=== PATIENT | female | born 1980 | race Caucasian/White ===

== ENCOUNTER → 2017-10-20 09:53 | Outpatient (CLI) | payer OTHER, SELFPAY ==
--- NOTE | 2017-10-20 10:01 | US_ITS ---
US transvaginal COMPARISON: Transvaginal ultrasound pelvis 08/16/2010 HISTORY: Dysfunctional uterine bleeding, some difficulty voiding TECHNIQUE: Transvaginal ultrasound FINDINGS: The previous study described a retroverted uterus. On the current study the technologist commented on the fact that the uterus flipped during the exam from retroverted to anteverted. There is a tiny nabothian cyst noted. There is a scar noted. The endometrial echo is somewhat thickened and mildly echogenic. There is a subtle area of decreased echogenicity within the endometrium measuring 1.5 cm which could represent an endometrial polyp. Both ovaries are normal in size both showing small follicular cysts. There is no cul-de-sac fluid. IMPRESSION: Somewhat thickened endometrium with curious slightly hypoechoic area within the endometrium at the uterine fundus suggesting possibility of endometrial polyp.
== END ==
PROVIDERS: Family Provider Family Medicine; PCP Family Medicine; Visit Provider Obstetrics & Gynecology
DX: N93.8 Other specified abnormal uterine and vaginal bleeding (principal)
CPT/HCPCS: 76830

== ENCOUNTER → 2017-12-01 14:31 | Outpatient (CLI) | payer OTHER, SELFPAY ==
[2017-12-01 14:33] LABS: Microscopic, Urine URINE MICROSCOPIC (MICROSCOPIC)
[2017-12-01 14:46] LABS: Appearance,Urine CLEAR (Clear); Bilirubin,Urine Negative (Negative); Blood, Urine Negative (Negative); Color,Urine YELLOW (Yellow); Glucose,Urine (UA) Negative (Negative); Ketones,Urine Negative (Negative); Leukocyte Esterase,Urine Negative (Negative); Nitrate,Urine Negative (Negative); PH,Urine 5.5 (5.0-8.5); Protein,Urine Negative (Negative); Specific Gravity, Urine 1.025 (1.005-1.030); Urobilinogen,Urine 0.2 EU/dl (0.2)
[2017-12-01 14:50] LABS: Urine Pregnancy, HCG Qual. Negative (Negative)
[2017-12-01 14:55] LABS: Bacteria,Urine Trace /lpf
[2017-12-01 15:05] LABS: Basophils % 0.5 % (0.1-2.0); Eosinophils # 0.1 K/mm3 (0.0-0.4); Hematocrit 42.9 % (37.0-47.0); Lymphocytes % 35.5 K/mm3 (10-50); Mean Corpuscular HGB Conc 30.4 g/dL (31.8-35.4); Mean Corpuscular Hemoglobin 30.4 pg (27.0-31.2); Mean Platelet Volume 7.6 fl (7.4-10.4); Monocytes # 0.6 K/mm3 (0.1-1.0); Monocytes % 7.1 % (1.7-9.3); Neutrophils # 4.8 K/mm3 (1.8-7.8); Platelet Count 274 K/mm3 (142-424); Red Blood Count 4.29 M/mm3 (4.20-5.40); Red Cell Distribution Width 12.8 % (11.5-17.5); White Blood Count 8.5 K/mm3 (4.8-10.8)
[2017-12-01 15:22] LABS: Alanine Aminotransferase 21 U/L (12-78); Albumin Level 3.6 gm/dL (3.4-5.0); Albumin/Globulin Ratio 1.3 (1.1-1.8); Alkaline Phosphatase 75 U/L (46-116); Anion Gap 12.9 mEq/L (5-15); Aspartate Amino Transferase 12 U/L (15-37); Bilirubin,Total 0.5 mg/dL (0.2-1.0); Blood Urea Nitrogen 11 mg/dL (7-18); Calcium 8.7 mg/dL (8.5-10.1); Carbon Dioxide 26 mmol/L (21.0-32.0); Chloride 105 mmol/L (98-107); Creatinine,Serum 0.74 mg/dL (0.55-1.02); Estimated Glomerular Filt Rate 89 ml/min (>60); GFR (African American) 107 ML/MIN (>60); Globulin 2.8 gm/dl (1.3-3.2); Glucose 84 mg/dL (74-106); Potassium 3.9 mmoL/L (3.5-5.1); Sodium 140 mmol/L (136-145); Total Protein,Serum 6.4 gm/dL (6.4-8.2)
== END ==
PROVIDERS: Visit Provider Obstetrics & Gynecology
DX: Z01.818 Encounter for other preprocedural examination (principal)
CPT/HCPCS: 36415; 80053; 81001; 81025; 85025

== ENCOUNTER → 2018-03-15 14:49 | Outpatient (CLI) | payer OTHER, SELFPAY ==
[2018-03-15 15:05] LABS: Basophils # 0.1 K/mm3 (0-0.2); Basophils % 0.7 % (0.1-2.0); Eosinophils # 0.1 K/mm3 (0.0-0.4); Hematocrit 39.5 % (37.0-47.0); Hemoglobin 12.9 g/dL (12.2-16.2); Lymphocytes # 3.1 K/mm3 (0.7-4.5); Lymphocytes % 36.2 K/mm3 (10-50); Mean Corpuscular HGB Conc 32.6 g/dL (31.8-35.4); Mean Corpuscular Hemoglobin 32.4 pg (27.0-31.2); Mean Corpuscular Volume 99.3 fl (81-99); Mean Platelet Volume 7.3 fl (7.4-10.4); Monocytes # 0.4 K/mm3 (0.1-1.0); Monocytes % 4.4 % (1.7-9.3); Neutrophils # 4.9 K/mm3 (1.8-7.8); Neutrophils % 57.7 % (37.0-80.0); Platelet Count 320 K/mm3 (142-424); Red Blood Count 3.98 M/mm3 (4.20-5.40); Red Cell Distribution Width 12.8 % (11.5-17.5); White Blood Count 8.5 K/mm3 (4.8-10.8)
[2018-03-19 05:22] LABS: Factor VIII Activity 60 % (57-163)
== END ==
PROVIDERS: Family Provider Family Medicine; PCP Family Medicine; Visit Provider Obstetrics & Gynecology
DX: D68.9 Coagulation defect, unspecified (principal); N93.8 Other specified abnormal uterine and vaginal bleeding
CPT/HCPCS: 36415; 85025; 85240

== ENCOUNTER → 2018-04-05 15:46 | Outpatient (CLI) | payer OTHER, SELFPAY ==
[2018-04-05 17:10] LABS: Activated Partial Thrombo Time 29.1 seconds (23.6-34.0); INR 0.99 (0.9-1.1); Prothrombin Time 10.2 seconds (9.4-11.8)
[2018-04-05 17:46] LABS: Ferritin 27 ng/mL (8-388)
[2018-04-07 08:20] LABS: Iron 120 ug/dL (27-159); UIBC 268 ug/dL (131-425)
[2018-04-07 18:09] LABS: Iron Saturation 31 % (15-55)
[2018-04-10 07:35] LABS: von Willebrand Factor (vWF) Ag 11 % (50-200)
== END ==
PROVIDERS: PCP Family Medicine; Visit Provider Internal Medicine Medical Oncology
DX: Z51.81 Encounter for therapeutic drug level monitoring (principal); Z79.01 Long term (current) use of anticoagulants
CPT/HCPCS: 36415; 82728; 83540; 83550; 85245; 85610; 85730

== ENCOUNTER → 2018-11-06 14:18 | Outpatient (CLI) | payer BC, SELFPAY ==
--- NOTE | 2018-11-06 14:19 | US_ITS ---
US transvaginal HISTORY: ITS.REASON: PELVIC PAIN, bleeding after hysterectomy ORDERING PHYSICIAN: Dionte Schwab MD PATIENT AGE: 38 years Comparison: None FINDINGS: Status post hysterectomy. No obvious pelvic fluid collection. The vaginal spine is not well demonstrated possibly due to overlying bowel gas. The right ovary is enlarged at 4.2 x 1.9 x 3 cm with heterogeneous echogenicity. Complex cyst is present measuring 1.7 cm and may represent hemorrhagic cyst. The left ovary is 2.9 x 1.6 cm and has an unremarkable appearance. No cul-de-sac fluid evident. There is bilateral ovarian blood flow. IMPRESSION: 1. Status post hysterectomy. 2. Hemorrhagic ovarian cyst on the right
== END ==
PROVIDERS: PCP Family Medicine; Visit Provider Obstetrics & Gynecology
DX: R10.2 Pelvic and perineal pain (principal)
CPT/HCPCS: 76830

== ENCOUNTER → 2020-03-02 14:39 | Outpatient (CLI) | payer BC, SELFPAY ==
[2020-03-02 15:11] LABS: Basophils # 0.1 K/mm3 (0-0.2); Basophils % 0.6 % (0.1-2.0); Eosinophils # 0.2 K/mm3 (0.0-0.4); Eosinophils % 2.3 % (0.1-12.0); Hemoglobin 13.3 g/dL (12.2-16.2); Lymphocytes # 1.7 K/mm3 (0.7-4.5); Lymphocytes % 17.7 % (10-50); Mean Corpuscular HGB Conc 34.9 g/dL (31.8-35.4); Mean Corpuscular Hemoglobin 34.1 pg (27.0-31.2); Mean Platelet Volume 7.7 fl (7.4-10.4); Monocytes # 0.7 K/mm3 (0.1-1.0); Monocytes % 6.7 % (1.7-9.3); Neutrophils # 7.1 K/mm3 (1.8-7.8); Neutrophils % 72.7 % (37.0-80.0); Platelet Count 292 K/mm3 (142-424); Red Blood Count 3.88 M/mm3 (4.20-5.40); Red Cell Distribution Width 13.2 % (11.5-17.5); White Blood Count 9.7 K/mm3 (4.8-10.8)
[2020-03-04 14:19] LABS: Covid-19 Nasal PCR Sendout Lex Not Detected
== END ==
PROVIDERS: PCP Family Medicine; Visit Provider Family Medicine
DX: Z03.818 Encounter for observation for suspected exposure to other biological agents ruled out (principal)
CPT/HCPCS: 36415; 85025; U0004

== ENCOUNTER 2020-11-18 05:28 | Emergency (ER) | payer BC, SELFPAY ==
[2020-11-18 05:29] VITALS: BP 123/70; PULSE 112; RESP 18; TEMP 36.8; O2SAT 98; BMI 29.6
[2020-11-18 06:12] VITALS: BP 125/61; PULSE 83; O2SAT 98
[2020-11-18 06:17] LABS: Alanine Aminotransferase 13 U/L (12-78); Albumin Level 4.3 g/dl (3.5-5.0); Albumin/Globulin Ratio 1.5 (1.1-1.8); Alkaline Phosphatase 74 U/L (38-126); Aspartate Amino Transferase 23 U/L (14-36); Bilirubin,Total 0.5 mg/dl (0.2-1.3); Blood Urea Nitrogen 12 mg/dl (7-17); Calcium 8.9 mg/dl (8.4-10.2); Carbon Dioxide 21 mmol/L (22.0-30.0); Chloride 109 mmol/L (98-107); Creatinine Clearance Estimated 146 mL/min (50-200); Estimated Glomerular Filt Rate 111 ml/min (>60); GFR (African American) 135 ML/MIN (>60); Globulin 2.8 g/dL (1.3-3.2); Glucose 130 mg/dl (74-100); Sodium 138 mmol/L (136-145); Total Protein,Serum 7.1 g/dl (6.3-8.2)
[2020-11-18 06:20] LABS: Basophils # 0.1 K/mm3 (0-0.2); Basophils % 0.6 % (0.1-2.0); Eosinophils # 0.1 K/mm3 (0.0-0.4); Eosinophils % 0.7 % (0.1-12.0); Hematocrit 42.7 % (37.0-47.0); Hemoglobin 14.1 g/dL (12.2-16.2); Lymphocytes # 2.8 K/mm3 (0.7-4.5); Mean Corpuscular HGB Conc 33.1 g/dL (31.8-35.4); Mean Corpuscular Hemoglobin 32.4 pg (27.0-31.2); Mean Platelet Volume 7.5 fl (7.4-10.4); Monocytes # 0.6 K/mm3 (0.1-1.0); Monocytes % 4.8 % (1.7-9.3); Neutrophils # 9.2 K/mm3 (1.8-7.8); Neutrophils % 71.9 % (37.0-80.0); Platelet Count 303 K/mm3 (142-424); Red Blood Count 4.35 M/mm3 (4.20-5.40); White Blood Count 12.8 K/mm3 (4.8-10.8)
[2020-11-18 06:22] LABS: C-Reactive Protein 1.2 mg/L (0-4)
[2020-11-18 06:30] VITALS: BP 94/47; PULSE 63; O2SAT 100
[2020-11-18 06:36] LABS: Procalcitonin 0.036 ng/mL (0.0-2.0)
[2020-11-18 06:53] LABS: Erythrocyte Sedimentation Rate 16 mm/hr (0-20)
[2020-11-18 06:56] VITALS: BP 108/54; PULSE 71; O2SAT 99
--- NOTE | 2020-11-18 07:00 | HMH.EDHA ---
ED Disposition Clinical Impression: Migraine Qualifiers: Migraine type: unspecified Status migrainosus presence: without status migrainosus Intractability: not intractable Qualified Code(s): G43.909 - Migraine, unspecified, not intractable, without status migrainosus Disposition: Home, Self-Care Condition on Discharge: Good Instructions: DI for Migraine Additional Instructions: call pcp this am Referrals: Kai Reina MD [Primary Care Provider] - - Critical Care Critical Care Time: No Attestation: On 11/18/20, the high probability of a clinically significant, sudden or life threatening deterioration of the following system(s) required my full and direct attention, intervention and personal management. The time I documented below is in addition to time spent performing reported procedures but includes the following listed in this critical care notation. Medical Decision Making - Medical Records Medical records reviewed: Yes: I reviewed the patient's medical records. - Greg Inquiry Pt receiving controlled substance: No Vital Signs: 11/18/20 05:29 11/18/20 06:12 11/18/20 06:30 Temperature 98.2 F Temperature Source Oral Pulse Rate 83 63 Pulse Rate [Right] 112 H Respiratory Rate 18 Blood Pressure 125/61 94/47 L Blood Pressure [Right Arm] 123/70 Blood Pressure Mean 62 Blood Pressure Mean [Right Arm] 87 Blood Pressure Source [Right Arm] Automatic Cuff 02 Sat by Pulse Oximetry 98 98 100 Oxygen Delivery Method Room Air Room Air - Lab Data Lab results reviewed: Yes: I reviewed the patient's lab results. Lab Results 11/18/20 05:40: WBC 12.8 H, RBC 4.35, Hgb 14.1, Hct 42.7, MCV 98.0, MCH 32.4 H, MCHC 33.1, RDW 13.0, Plt Count 303, MPV 7.5, Neut % (Auto) 71.9, Lymph % (Auto) 22.0, [place] % (Auto) 4.8, Eos % (Auto) 0.7, Baso % (Auto) 0.6, Neut # (Auto) 9.2 H, Lymph # (Auto) 2.8, [place] # (Auto) 0.6, Eos # (Auto) 0.1, Baso # (Auto) 0.1, ESR 16 11/18/20 05:40: Sodium 138, Potassium 4.0, Chloride 109 H, Carbon Dioxide 21 L, Anion Gap 12.0, BUN 12, Creatinine 0.60, Estimated Creat Clear 146, Estimated GFR 111, Est GFR ( Amer) 135, Glucose 130 H, Calcium 8.9, Total Bilirubin 0.5, AST 23, ALT 13, Alkaline Phosphatase 74, C-Reactive Protein 1.2, Total Protein 7.1, Albumin 4.3, Globulin 2.8, Albumin/Globulin Ratio 1.5, Procalcitonin 0.036 Result diagrams: 11/18/20 05:40 11/18/20 05:40 Orders (Tests/Meds): ED MEDICATIONS Generic Name Dose Route Start Last Admin Trade Name Freq PRN Reason Stop Dose Admin Sodium Chloride 1,000 mls @ 999 mls/hr 11/18/20 06:15 11/18/20 06:10 Sod Chlor 0.9% 1000ml Bag IV 11/18/20 07:15 999 mls/hr .Q1H1M HERBIE Administration Discontinued Medications Generic Name Dose Route Start Last Admin Trade Name Freq PRN Reason Stop Dose Admin Diphenhydramine HCl 50 mg 11/18/20 06:07 11/18/20 06:10 Diphenhydramine 50mg/Ml Vial IV 11/18/20 06:08 50 mg ONCE ONE Administration Ketorolac Tromethamine 30 mg 11/18/20 06:07 11/18/20 06:10 Ketorolac 30mg/Ml Vial IV 11/18/20 06:08 30 mg ONCE ONE Administration Methylprednisolone Sodium Succinate 125 mg 11/18/20 06:07 11/18/20 06:10 Methylprednisolone Sod Succ 125mg Vial IV 11/18/20 06:08 125 mg ONCE ONE Administration Metoclopramide HCl 10 mg 11/18/20 06:07 11/18/20 06:10 Metoclopramide Hcl 10mg/2ml Vial IVP 11/18/20 06:08 10 mg ONCE ONE Administration Promethazine HCl 25 mg 11/18/20 06:07 11/18/20 06:10 Promethazine Hcl 25mg/Ml 1ml Vial IV 11/18/20 06:08 25 mg ONCE ONE Administration Sodium Chloride 25 ml 11/18/20 06:07 11/18/20 06:11 Sodium Chloride 0.9% 25ml Bag IV 11/18/20 06:08 25 ml ONCE ONE Administration Medical Decision Narrative: improved after treatment Headache HPI - General Chief Complaint: Headache Stated Complaint: Migraine with vomiting Time Seen by Provider: 11/18/20 06:00 Mode of Arrival: Ambulatory
[2020-11-18 07:08] VITALS: BP 108/54; PULSE 71; RESP 16; TEMP 36.8; O2SAT 100
== END 2020-11-18 07:15 | disposition home or self-care (01) ==
PROVIDERS: Emergency Provider Emergency Medicine; PCP Family Medicine
DX: G43.909 Migraine, unspecified, not intractable, without status migrainosus (principal)
CPT/HCPCS: 80053; 84145; 85025; 85651; 86140; 96365; 96375; 99282

== ENCOUNTER 2021-01-24 19:43 | Emergency (ER) | payer OTHER, BC, SELFPAY ==
[2021-01-24] VITALS (7 sets, daily range): BP systolic 103–136; BP diastolic 62–76; PULSE 64–83; RESP 16–17; TEMP 36.8; O2SAT 98–99; BMI 20.5
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
[2021-01-24 20:49] LABS: Basophils # 0.1 K/mm3 (0-0.2); Basophils % 0.7 % (0.1-2.0); Eosinophils # 0.1 K/mm3 (0.0-0.4); Eosinophils % 1.3 % (0.1-12.0); Hemoglobin 12.9 g/dL (12.2-16.2); Lymphocytes # 3.1 K/mm3 (0.7-4.5); Lymphocytes % 29.7 % (10-50); Mean Corpuscular Hemoglobin 33.1 pg (27.0-31.2); Mean Corpuscular Volume 97.5 fl (81-99); Mean Platelet Volume 7.8 fl (7.4-10.4); Monocytes # 0.5 K/mm3 (0.1-1.0); Monocytes % 5.1 % (1.7-9.3); Neutrophils # 6.6 K/mm3 (1.8-7.8); Neutrophils % 63.2 % (37.0-80.0); Platelet Count 295 K/mm3 (142-424); Red Cell Distribution Width 13.4 % (11.5-17.5); White Blood Count 10.4 K/mm3 (4.8-10.8)
[2021-01-24 20:55] LABS: Alanine Aminotransferase 9 U/L (12-78); Albumin Level 4.1 g/dl (3.5-5.0); Albumin/Globulin Ratio 1.6 (1.1-1.8); Alkaline Phosphatase 73 U/L (38-126); Anion Gap 8.5 mEq/L (5-15); Aspartate Amino Transferase 20 U/L (14-36); Bilirubin,Total 0.5 mg/dl (0.2-1.3); Blood Urea Nitrogen 13 mg/dl (7-17); Calcium 8.3 mg/dl (8.4-10.2); Carbon Dioxide 26 mmol/L (22.0-30.0); Chloride 108 mmol/L (98-107); Creatinine Clearance Estimated 108 mL/min (50-200); Estimated Glomerular Filt Rate 111 ml/min (>60); GFR (African American) 135 ML/MIN (>60); Globulin 2.5 g/dL (1.3-3.2); Glucose 94 mg/dl (74-100); Potassium 3.5 mmoL/L (3.5-5.1); Sodium 139 mmol/L (136-145); Total Protein,Serum 6.6 g/dl (6.3-8.2)
== END 2021-01-24 23:28 | disposition home or self-care (01) ==
PROVIDERS: Emergency Medicine; Emergency Provider Emergency Medicine; PCP Family Medicine
DX: S00.81XA Abrasion of other part of head, initial encounter (principal); S16.1XXA Strain of muscle, fascia and tendon at neck level, initial encounter; S50.12XA Contusion of left forearm, initial encounter; S80.212A Abrasion, left knee, initial encounter; S80.211A Abrasion, right knee, initial encounter; V43.63XA Car passenger injured in collision with pick-up truck in traffic accident, initial encounter; Y92.488 Other paved roadways as the place of occurrence of the external cause
CPT/HCPCS: 70450; 72125; 73080; 73090; 74177; 80053; 85025; 96365; 96375; 99283; J2405

== ENCOUNTER 2021-01-26 13:49 | Emergency (ER) | payer BC, SELFPAY ==
[2021-01-26 13:50] VITALS: BP 149/82; PULSE 74; RESP 16; TEMP 37.2; O2SAT 99; BMI 31.1
[2021-01-26 14:11] VITALS: BMI 31.1
--- NOTE | 2021-01-26 14:11 | XR_ITS ---
PROCEDURE: XR CHEST 2V CLINICAL HISTORY: soa Cough and congestion COMPARISON: CR CXR CHEST(2 VIEWS-NOT PORTABLE) from 10/28/2012 CR CXR CHEST(2 VIEWS-NOT PORTABLE) from 07/03/2016 DX CXR CHEST(2 VIEWS-NOT PORTABLE) from 05/31/2017 FINDINGS: The cardiomediastinal silhouette and pulmonary vascularity are within normal limits. The lungs are clear without infiltrates, suspicious nodules, or pleural effusions. There is reversal of the mid thoracic kyphosis not significantly changed. IMPRESSION: No acute findings. Dictated by: Jose Ford MD 01/26/2021 15:31 Jose Ford MD in [place] 01/26/2021 15:31
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
[2021-01-26 15:40] VITALS: BP 149/82; PULSE 74; RESP 16; TEMP 37.2; O2SAT 99
[2021-01-27 09:43] LABS: UTC Strep Screen (Rapid) Negative (Negative)
== END 2021-01-26 15:41 | disposition home or self-care (01) ==
PROVIDERS: Emergency Provider Nurse Practitioner Family; PCP Family Medicine
DX: J01.90 Acute sinusitis, unspecified (principal); F17.210 Nicotine dependence, cigarettes, uncomplicated
CPT/HCPCS: 71046; 87880; 99202; G0463; U0003

== ENCOUNTER 2021-02-06 15:50 | Emergency (ER) | payer BC, SELFPAY ==
[2021-02-06 15:52] VITALS: BP 134/79; PULSE 78; RESP 20; TEMP 37.2; O2SAT 99; BMI 31.1
--- NOTE | 2021-02-06 16:38 | XR_ITS ---
PROCEDURE INFORMATION: Exam: XR Chest Exam date and time: 02/06/2021 4:38 PM Age: 40 years old Clinical indication: Cough; Additional info: Cough x 2 wks TECHNIQUE: Imaging protocol: XR of the chest. Views: 2 views. COMPARISON: CR XR CHEST 2V 01/26/2021 2:34 PM FINDINGS: Airway: Patent Lungs: Subtle increased interstitial prominence, segmental bronchial wall thickening, and ground-glass haziness in the bilateral infrahilar regions. Remainder of the lungs are clear. Calcified granuloma in the right upper lung is of no concern and stable. Pleural spaces: Unremarkable. No pleural effusion. No pneumothorax. Heart/Mediastinum: Unremarkable. No cardiomegaly. Bones/joints: No acute skeletal abnormality or aggressive osseous lesion. IMPRESSION: 1. Bilateral infrahilar findings concerning for mild bronchitis and early interstitial disease, as could be seen with a viral illness in the appropriate clinical setting. 2. No definitive evidence of lobar pneumonia.
--- NOTE | 2021-02-06 16:46 | HMH.EDUTC ---
[facility] [place] Clinical Impression: Bronchitis, Thrush Sinusitis Qualifiers: Sinusitis location: maxillary Chronicity: acute Recurrence: non-recurrent Qualified Code(s): J01.00 - Acute maxillary sinusitis, unspecified Disposition: Home, Self-Care Condition on Discharge: Good Instructions: DI for Sinusitis Additional Instructions: COVID19 test is pending Prescriptions: Amoxicillin/Potassium Clav [Augmentin 875-125 Tablet] 1 tab PO Q12H 10 Days #20 tab Transmission Status: Pending to [facility] Brompheniramine/Pseudoephed/Dm [Bromfed DM Cough Syrup 5mL] 5 - 10 ml PO Q6HP PRN #200 ml PRN Reason: Cough Transmission Status: Pending to [facility] Nystatin [Nystatin Susp 500,000 Units/5mL Udc] 10 ml PO QID 10 Days #400 udc Transmission Status: Pending to [facility] predniSONE [Prednisone 20mg Tab] 20 mg PO BID 5 Days #10 tab Transmission Status: Pending to [facility] Referrals: Kai Reina MD [Primary Care Provider] - Time of Disposition: 17:15 Medical Decision Making - Greg Inquiry Pt receiving controlled substance: No Vital Signs: 02/06/21 15:52 Temperature 98.9 F Temperature Source Oral Pulse Rate [Left Radial] 78 Respiratory Rate 20 Blood Pressure [Right Arm] 134/79 Blood Pressure Mean [Right Arm] 97 Blood Pressure Source [Right Arm] Automatic Cuff Blood Pressure Position [Right Arm] Sitting 02 Sat by Pulse Oximetry 99 Orders (Tests/Meds): ORDERS Category Date Time Status XR chest 2V Stat Exams 02/06/21 16:38 Taken Covid-19 Nasal PCR ([facility]) Routine Lab 02/06/21 17:05 Ordered - Radiology Data #1 Image(s): Chest Image Reviewed: Yes I reviewed the patient's radiology image Preliminary Findings: Normal/NAD [facility] [place] - General Stated complaint: cough,TOLENTINO,Vomiting Time Seen by Provider: 02/06/21 16:46 Mode of Arrival: Ambulatory Source of Information: Patient Limitations: No Limitations Description of Symptoms (Recalled from Triage Doc. by RN): c/o sinuses and cough for 2 weeks HEENT Symptoms (Recalled from RN notes): Yes Resp Symptoms (Recalled from RN notes): No Skin Symptoms (Recalled from RN notes): No MS Symptoms (Recalled from RN notes): No Functional Status (Recalled from RN notes): wnl - History of Present Illness Provider Complaint: Patient has had cough, congestion, sinus pain, shortness of breath X 2 weeks. Took Z-Pack, Medrol dose pack. Still feels poorly. Cough worse at night. Used old inhaler and gave herself thrush. No fever. She does smoke. Onset (ago): week(s) (2) Location: chest Relieving factors: none Exacerbating factors: none Associated symptoms: cough Treatments prior to arrival: other (Zpack, Medrol Dose Pack) - Related Data Previous Rx's Medication Instructions Recorded Azithromycin [Z-Brian 250mg Tab*] 250 mg PO UD DOSE PK #6 tab 01/26/21 Promethazine/Dextromethorphan 5 ml PO Q6HP PRN #240 syrup 01/26/21 [Promethazine-Dm Syrup] guaiFENesin [Mucinex 600mg tablet] 1 - 2 tab PO BIDP PRN #30 01/26/21 tab.er.12h methylPREDNISolone [Medrol] 4 mg PO DIRECTED 6 Days #21 01/26/21 tab.ds.pk Amoxicillin/Potassium Clav 1 tab PO Q12H 10 Days #20 tab 02/06/21 [Augmentin 875-125 Tablet] Brompheniramine/Pseudoephed/Dm 5 - 10 ml PO Q6HP PRN #200 ml 02/06/21 [Bromfed DM Cough Syrup 5mL] Nystatin [Nystatin Susp 500,000 10 ml PO QID 10 Days #400 udc 02/06/21 Units/5mL Udc] predniSONE [Prednisone 20mg 20 mg PO BID 5 Days #10 tab 02/06/21 Tab] Allergies Allergy/AdvReac Type Severity Reaction Status Date / Time No Known Allergies Allergy Verified 08/31/19 16:12 - Worker's Comp Is this a Worker's Comp case?: No [facility] History - Hepatitis A Screen Drug use history?: No High risk sexual behaviors?: No History of sexually transmitted infection?: No Currently employed?: No Childcare worker?: No Do you have indoor plumbing?: Yes Do you have electricity?: Yes Attestat
[2021-02-06 17:20] VITALS: BP 134/79; PULSE 78; RESP 20; TEMP 37.2; O2SAT 99
== END 2021-02-06 17:22 | disposition home or self-care (01) ==
PROVIDERS: Emergency Provider Physician Assistant; PCP Family Medicine
DX: J01.00 Acute maxillary sinusitis, unspecified (principal); J20.9 Acute bronchitis, unspecified; F17.210 Nicotine dependence, cigarettes, uncomplicated
CPT/HCPCS: 71046; 99202; G0463; U0003

== ENCOUNTER 2021-05-23 13:48 | Emergency (ER) | payer BC, SELFPAY ==
[2021-05-23 13:49] VITALS: BP 127/83; PULSE 93; RESP 16; TEMP 36.9; O2SAT 98; BMI 28.9
--- NOTE | 2021-05-23 14:07 | CT_ITS ---
PROCEDURE INFORMATION: Exam: CT Abdomen And Pelvis Without Contrast Exam date and time: 05/23/2021 2:07 PM Age: 41 years old Clinical indication: Vomiting; Abdominal pain; Flank; Right lower quadrant (rlq); Additional info: R/O stone TECHNIQUE: Imaging protocol: Computed tomography of the abdomen and pelvis without contrast. Radiation optimization: All CT scans at this facility use at least one of these dose optimization techniques: automated exposure control; mA and/or kV adjustment per patient size (includes targeted exams where dose is matched to clinical indication); or iterative reconstruction. COMPARISON: CT ABDOMEN PELVIS W CON 01/24/2021 9:12 PM FINDINGS: Liver: Normal. Gallbladder and bile ducts: Normal Pancreas: Normal. Spleen: Normal. Adrenal glands: Normal. No mass. Kidneys and ureters: Normal. Stomach and bowel: Normal. Appendix: Appendix normal. Intraperitoneal space: Unremarkable. No free air. No significant fluid collection. Vasculature: Phleboliths within the pelvis. Lymph nodes: Unremarkable. No enlarged lymph nodes. Urinary bladder: Unremarkable as visualized. Reproductive: Uterus is surgically absent. 2.9 cm left ovarian cyst. Bones/joints: No acute abnormality. Soft tissues: Small fat containing umbilical hernia. IMPRESSION: No acute abdominal or pelvic abnormality.
[2021-05-23 14:25] LABS: Microscopic, Urine URINE MICROSCOPIC (MICROSCOPIC)
[2021-05-23 14:30] LABS: Chloride 108 mmol/L (98-107); Potassium 3.7 mmoL/L (3.5-5.1); Sodium 141 mmol/L (136-145)
[2021-05-23 14:31] LABS: Appearance,Urine CLEAR (Clear); Basophils # 0.2 K/mm3 (0-0.2); Bilirubin,Urine Negative (Negative); Blood, Urine TRACE-I (Negative); Color,Urine YELLOW (Yellow); Eosinophils # 0.2 K/mm3 (0.0-0.4); Eosinophils % 1.9 % (0.1-12.0); Glucose,Urine (UA) Negative (Negative); Hematocrit 39.8 % (37.0-47.0); Hemoglobin 13.4 g/dL (12.2-16.2); Ketones,Urine Negative (Negative); Leukocyte Esterase,Urine Negative (Negative); Lymphocytes # 2.5 K/mm3 (0.7-4.5); Lymphocytes % 25.4 % (10-50); Mean Corpuscular HGB Conc 33.6 g/dL (31.8-35.4); Mean Corpuscular Hemoglobin 33.6 pg (27.0-31.2); Mean Corpuscular Volume 100.1 fl (81-99); Mean Platelet Volume 7.8 fl (7.4-10.4); Monocytes # 0.5 K/mm3 (0.1-1.0); Monocytes % 5.4 % (1.7-9.3); Neutrophils # 6.3 K/mm3 (1.8-7.8); Neutrophils % 65.2 % (37.0-80.0); Nitrate,Urine Negative (Negative); Platelet Count 314 K/mm3 (142-424); Protein,Urine Negative (Negative); Red Blood Count 3.98 M/mm3 (4.20-5.40); Red Cell Distribution Width 12.9 % (11.5-17.5); Specific Gravity, Urine >= 1.030 (1.005-1.030); Urobilinogen,Urine 0.2 EU/dl (0.2); White Blood Count 9.7 K/mm3 (4.8-10.8)
[2021-05-23 14:33] LABS: Alanine Aminotransferase 15 U/L (12-78); Albumin Level 4.2 g/dl (3.5-5.0); Albumin/Globulin Ratio 1.8 (1.1-1.8); Alkaline Phosphatase 57 U/L (38-126); Anion Gap 10.7 mEq/L (5-15); Aspartate Amino Transferase 24 U/L (14-36); Bilirubin,Total 0.4 mg/dl (0.2-1.3); Blood Urea Nitrogen 14 mg/dl (7-17); Carbon Dioxide 26 mmol/L (22.0-30.0); Creatinine Clearance Estimated 121 mL/min (50-200); Estimated Glomerular Filt Rate 93 ml/min (>60); GFR (African American) 112 ML/MIN (>60); Globulin 2.4 g/dL (1.3-3.2); Glucose 104 mg/dl (74-100); Total Protein,Serum 6.6 g/dl (6.3-8.2)
[2021-05-23 14:48] LABS: Bacteria,Urine Trace /lpf; RBC,Urine Occasional #/hpf (0-3)
--- NOTE | 2021-05-23 16:11 | HMH.EDGENADL ---
ED Disposition Clinical Impression: Right sided abdominal pain, Right flank pain Diarrhea Qualifiers: Diarrhea type: unspecified type Qualified Code(s): R19.7 - Diarrhea, unspecified Disposition: Home, Self-Care Condition on Discharge: Good Instructions: DI for Abdominal Pain-Adult, DI for Diarrhea and Traveler's Diarrhea -- Adult Additional Instructions: Collect sample for outpatient diarrhea panel, follow-up results from your primary care provider. Commend that she see your primary care provider and discuss getting a gallbladder ultrasound. Tylenol or ibuprofen for pain. Return to the emergency room if intolerable pain, repetitive vomiting, fever, bloody diarrhea. Referrals: Kai Reina MD [Primary Care Provider] - - Critical Care Critical Care Time: No Attestation: On 05/23/21, the high probability of a clinically significant, sudden or life threatening deterioration of the following system(s) required my full and direct attention, intervention and personal management. The time I documented below is in addition to time spent performing reported procedures but includes the following listed in this critical care notation. Medical Decision Making - Greg Inquiry Pt receiving controlled substance: No Vital Signs: 05/23/21 13:49 Temperature 98.5 F Temperature Source Oral Pulse Rate [Radial] 93 H Respiratory Rate 16 Blood Pressure [Right Radial Artery] 127/83 Blood Pressure Mean [Right Radial Artery] 97 Blood Pressure Position [Right Radial Artery] Sitting 02 Sat by Pulse Oximetry 98 Oxygen Delivery Method Room Air - Lab Data Lab Results 05/23/21 14:20: Urine Color Yellow, Urine Appearance Clear, Urine pH 6.0, Ur Specific [place] >= 1.030, Urine Protein Negative, Urine Glucose (UA) Negative, Urine Ketones Negative, Urine Blood Trace-i, Urine Nitrate Negative, Urine Bilirubin Negative, Urine Urobilinogen 0.2, Ur Leukocyte Esterase Negative, Urine RBC Occasional, Urine WBC 3-5, Ur Squamous Epith Cells 3-5, Urine Bacteria Trace 05/23/21 14:20: WBC 9.7, RBC 3.98 L, Hgb 13.4, Hct 39.8, MCV 100.1 H, MCH 33.6 H, MCHC 33.6, RDW 12.9, Plt Count 314, MPV 7.8, Neut % (Auto) 65.2, Lymph % (Auto) 25.4, Door % (Auto) 5.4, Eos % (Auto) 1.9, Baso % (Auto) 2.0, Neut # (Auto) 6.3, Lymph # (Auto) 2.5, Door # (Auto) 0.5, Eos # (Auto) 0.2, Baso # (Auto) 0.2 05/23/21 14:20: Sodium 141, Potassium 3.7, Chloride 108 H, Carbon Dioxide 26, Anion Gap 10.7, BUN 14, Creatinine 0.70, Estimated Creat Clear 121, Estimated GFR 93, Est GFR ( Amer) 112, Glucose 104 H, Calcium 9.0, Total Bilirubin 0.4, AST 24, ALT 15, Alkaline Phosphatase 57, Total Protein 6.6, Albumin 4.2, Globulin 2.4, Albumin/Globulin Ratio 1.8 Result diagrams: 05/23/21 14:20 05/23/21 14:20 Orders (Tests/Meds): ED MEDICATIONS Discontinued Medications Generic Name Dose Route Start Last Admin Trade Name Freq PRN Reason Stop Dose Admin Sodium Chloride 1,000 mls @ 999 mls/hr 05/23/21 14:30 05/23/21 14:27 Sod Chlor 0.9% 1000ml Bag IV 05/23/21 15:30 999 mls/hr .Q1H1M HERBIE Administration Ketorolac Tromethamine 30 mg 05/23/21 14:20 05/23/21 14:26 Ketorolac 30mg/Ml Vial IV 05/23/21 14:21 30 mg ONCE ONE Administration Ondansetron HCl 4 mg 05/23/21 14:20 05/23/21 14:27 Ondansetron 4mg/2ml Vial IV 05/23/21 14:21 4 mg ONCE ONE Administration ORDERS Category Date Time Status Lipase Stat Lab 05/23/21 16:14 Ordered - CT Data CT Scan: Abdomen, Pelvis Time Received: 16:[address] Reviewed: Yes: I have viewed the radiologist's interpretation Findings Narrative: PROCEDURE INFORMATION: Exam: CT Abdomen And Pelvis Without Contrast Exam date and time: 05/23/2021 2:07 PM Age: 41 years old Clinical indication: Vomiting; Abdominal pain; Flank; Right lower quadrant (rlq); Additional info: R/O stone TECHNIQUE: Imaging protocol: Computed tomography of the abdomen and pelvis without contrast. Radiation
[2021-05-23 16:30] LABS: Lipase 54 U/L (23-300)
[2021-05-23 17:15] VITALS: BP 130/87; PULSE 90; RESP 16; TEMP 36.9; O2SAT 99
== END 2021-05-23 17:16 | disposition home or self-care (01) ==
PROVIDERS: Emergency Provider Emergency Medicine; PCP Family Medicine
DX: R10.11 Right upper quadrant pain (principal); R19.7 Diarrhea, unspecified
CPT/HCPCS: 74176; 80053; 81001; 83690; 85025; 96365; 96375; 99283; J2405

== ENCOUNTER 2021-08-31 10:11 | Emergency (ER) | payer BC, SELFPAY ==
[2021-08-31 10:43] VITALS: BP 113/77; PULSE 82; RESP 18; TEMP 36.9; O2SAT 97; BMI 29.2
--- NOTE | 2021-08-31 10:49 | HMH.EDUTC ---
[facility] Disposition Clinical Impression: Viral syndrome Disposition: Home, Self-Care Condition on Discharge: Good Instructions: DI for Viral Syndrome, DI for Nasal Congestion Additional Instructions: *Monitor Temp, Over the counter Motrin or Tylenol as directed/as needed Tylenol every 4 hours and Motrin every 6 hours (as long as your family doctor has told you that you can take it) for fever or pain. and straight to ER if unable to lower temp less than 101.0 after medication given *Warm salt water gargles may help to soothe the throat *Throat Lozenges *Warm fluids like tea with honey may help to soothe the throat *Sleep elevated *Humidifier/Vaporizer *Flonase 2 sprays in each nostril daily but be aware that it may take 2-3 days before you notice improvement Your throat swab was sent for culture. Those results are typically sent to your primary care. Be sure to follow up in 2-3 days with your family doctor/primary care physician if no improvement so they can review those result and treat if necessary. If you don?t have a primary care doctor, I recommend you get one but in the mean time, you will have to return to a walk in clinic Follow up IMMEDIATELY for new or worsening symptoms or no Noticeable improvement over the next 48-72 hours. 911 for difficulty breathing or swallowing Prescriptions: methylPREDNISolone [Medrol 4mg tab] 4 mg PO DIRECTED #21 tab [facility]: [id number] Ondansetron [Zofran 4mg ODT] 4 mg PO TIDP PRN #6 tab PRN Reason: Vomiting [facility] Status[id number] Referrals: Kai Reina MD [Primary Care Provider] - As needed Forms: Work/School Release Time of Disposition: 11:36 Medical Decision Making - Greg Inquiry Pt receiving controlled substance: No Greg was queried for this patient: No Vital Signs: 08/31/21 10:43 Temperature 98.4 F Temperature Source Oral Pulse Rate [Right Radial] 82 Respiratory Rate 18 Blood Pressure [Right Arm] 113/77 Blood Pressure Mean [Right Arm] 89 Blood Pressure Source [Right Arm] Automatic Cuff Blood Pressure Position [Right Arm] Sitting 02 Sat by Pulse Oximetry 97 Oxygen Delivery Method Room Air - Lab Data Lab results reviewed: Yes: I reviewed the patient's lab results. Lab Results 08/31/21 10:46: Influenza Type A Ag Negative, Influenza Type B Ag Negative Medical Decision Narrative: Patient states that she has taken medrol and zofran in the past without complication or reactions [facility] HPI - General Stated complaint: nausea,body aches,headache,cough Time Seen by Provider: 08/31/21 10:49 Mode of Arrival: Ambulatory Source of Information: Patient Limitations: No Limitations Description of Symptoms (Recalled from Triage Doc. by RN): pt reports body aches, states she feels like she has the flu. Reports her child has been vomitting. Denies fevers. HEENT Symptoms (Recalled from RN notes): No Resp Symptoms (Recalled from RN notes): No Skin Symptoms (Recalled from RN notes): No MS Symptoms (Recalled from RN notes): No Functional Status (Recalled from RN notes): n/a - History of Present Illness Provider Complaint: Patient states that she has been feeling achy all over, body aches, chills and feels like she may have the flu States that her child has been having stomach virus with vomiting States that she hasnt vomited but has had some nausea - Related Data Previous Rx's Medication Instructions Recorded Azithromycin [Z-Brian 250mg Tab*] 250 mg PO UD DOSE PK #6 tab 01/26/21 Promethazine/Dextromethorphan 5 ml PO Q6HP PRN #240 syrup 01/26/21 [Promethazine-Dm Syrup] guaiFENesin [Mucinex 600mg tablet] 1 - 2 tab PO BIDP PRN #30 01/26/21 tab.er.12h methylPREDNISolone [Medrol] 4 mg PO DIRECTED 6 Days #21 01/26/21 tab.ds.pk amoxicillin 875 mg-potassium 1 tab PO Q12H 10 Days #20 tab 02/06/21 clavulanate 125 mg tablet gowlgzuumsewhtf-plxpmdkliwtclpv-DI 5 - 10 ml PO Q6HP PRN #20
[2021-08-31 11:16] LABS: UTC Influenza A Antigen Negative (Negative)
[2021-08-31 11:17] LABS: UTC Influenza B Antigen Negative (Negative)
[2021-08-31 11:29] LABS: UTC Strep Screen (Rapid) Negative (Negative)
[2021-08-31 12:00] VITALS: BP 113/77; PULSE 82; RESP 18; TEMP 36.9; O2SAT 97
== END 2021-08-31 12:00 | disposition home or self-care (01) ==
PROVIDERS: Emergency Provider Nurse Practitioner; PCP Family Medicine
DX: B34.8 Other viral infections of unspecified site (principal)
CPT/HCPCS: 87804; 87880; 99212; G0463

== ENCOUNTER → 2021-11-09 09:23 | Outpatient (CLI) | payer BC, SELFPAY ==
--- NOTE | 2021-11-09 09:30 | US_ITS ---
FINAL REPORT CLINICAL HISTORY: IRRITABLE BOWEL SYNDROME W/DIARRHEA FINDINGS: RIGHT UPPER QUADRANT ULTRASOUND Sonographic images of the right upper quadrant were obtained. The pancreas is partially obscured.The liver has an unremarkable appearance.The gallbladder appears normal without evidence of gallstones. The common duct measures 1 mm . The right kidney measures 10.6 cm. IMPRESSION: No acute process. Reviewed, Interpreted and Dictated by Wisam Lee III, MD Transcribed by Piedad Willis Authenticated by Wisam Lee III, MD on 11/09/2021 01:21:[address] [facility]
== END ==
PROVIDERS: PCP Family Medicine; Visit Provider Family Medicine
DX: K58.0 Irritable bowel syndrome with diarrhea (principal)
CPT/HCPCS: 76705

== ENCOUNTER 2022-09-26 16:54 | Emergency (ER) | payer BC, SELFPAY ==
[2022-09-26 17:46] VITALS: BP 0/0; PULSE 0; RESP 0; TEMP -17.7; TEMP 0
== END 2022-09-26 17:47 | disposition left against medical advice (07) ==
LOC: UTC 16:57
PROVIDERS: Emergency Provider Nurse Practitioner; PCP Family Medicine
DX: Z53.21 Procedure and treatment not carried out due to patient leaving prior to being seen by health care provider (principal)

== ENCOUNTER 2022-10-01 14:18 | Emergency (ER) | payer BC, SELFPAY ==
[2022-10-01 15:00] VITALS: BP 153/93; PULSE 102; RESP 20; TEMP 36.7; O2SAT 99; BMI 24.7
--- NOTE | 2022-10-01 15:17 | EXP.UTC ---
Discharge Plan Disposition Patient Disposition: Home, Self-Care Condition: Good Prescriptions Prescriptions: New azithromycin [azithromycin] 250 mg tablet 250 mg PO DIRECTED Qty: 6 0RF Rx Instructions: Take two (2) tablets on day #1, then one (1) tablet day #2 thru #5 prednisone [prednisone] 20 mg tablet 20 mg PO BID Qty: 10 0RF Referrals Follow up/Referrals: Kai Reina MD [Primary Care Provider] - See instructions Activity Restrictions/Add. Instructions Additional Instructions/Restrictions: Start antibiotic today. Be sure to complete entire prescription even if feeling better Tylenol and ibuprofen as needed for pain or fever Humidifier/vaporizer/hot steamy shower Follow-up with primary care tomorrow. Follow-up immediately in the ER of the [facility] for new or worsening symptoms or no noticeable improvement over the next 48-72 hours. Stop smoking Start steroids today. Helps with inflammation therefore coughing and wheezing. Follow directions on package. Clinical Impressions Clinical Impression: Bronchitis Instructions Patient Instructions: DI for Acute Bronchitis Discharge ED [facility]Bridgette [facility] HPI General Stated complaint: Fever, SOA, Headache, diarrhea Mode of Arrival: Ambulatory Source of Information: Patient Limitations: No Limitations Time Seen by Provider: 10/01/22 15:17 HEENT Symptoms (Recalled from RN notes): Yes Resp Symptoms (Recalled from RN notes): Yes Skin Symptoms (Recalled from RN notes): No GI/ Symptoms (Recalled from RN notes): No MS Symptoms (Recalled from RN notes): No History of Present Illness Provider Complaint: 42 yr old female presents for coughing up thick dark sputum, hoarseness, sore throat, nasal congestion and sinus tenderness Related Data Previous Rx's Medication Instructions Recorded azithromycin 250 mg tablet 250 mg PO DIRECTED #6 tabs 10/01/22 prednisone 20 mg tablet 20 mg PO BID #10 tabs 10/01/22 Allergies Allergy/AdvReac Type Severity Reaction Status Date / Time No Known Allergies Allergy Verified 08/31/19 16:12 [facility] Disclaimer: The information contained in this section may have been updated after the patient was seen, as this information can be updated by other users. 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 (Reviewed 10/01/22 @ 15:22 by Bridgette Robin ([facility]), [employer] COUNTER FEEDER) Smoking Status: Current every day smoker tobacco type: cigarettes packs per day: 1 alcohol intake: never substance use type: denies use current occupational status: employed Travel in the last 8 weeks: None household members: family housing: house current occupation: [employer] current occupational exposures/hazards: No caffeine: Yes ROS Obtained: Yes All systems reviewed & no additional complaints except as documented Constitutional Constitutional: Reports system reviewed and no additional complaints, except as documented, Reports as per HPI, Reports body ache and Reports headache(s) Eyes Eyes: Reports system reviewed and no additional complaints, except as documented and Reports as per HPI ENT Ears, Nose, Mouth, and Throat: Reports system reviewed and no additional complaints, except as documented, Reports as per HPI, Reports facial pain, Reports headache(s), Reports nasal congestion, Reports nasal discharge, Reports sinus pain, Reports sinus pressure and Reports sore throat Cardiovascular Cardiovascular: Reports system reviewed and no additional complaints, except as documented and Reports as per HPI Respiratory Respiratory: Reports system reviewed and no additional complaints, except as documented, Reports as per HPI, Reports change in phlegm color, Reports chest congestion and Reports cough Gastrointestinal Gastrointestingal: Reports system reviewed and no additional complaints, except as documented Integumentary/Breasts Skin/Breast: Reports system reviewed and no additional complaints, except as documented and Reports as per HPI Neurologic
[2022-10-01 15:31] VITALS: BP 153/93; PULSE 102; RESP 20; TEMP 36.7; O2SAT 99
== END 2022-10-01 15:33 | disposition home or self-care (01) ==
PROVIDERS: Emergency Provider Nurse Practitioner Family; PCP Family Medicine
DX: J20.9 Acute bronchitis, unspecified (principal); R51.9 Headache, unspecified; R19.7 Diarrhea, unspecified; R50.9 Fever, unspecified; F17.210 Nicotine dependence, cigarettes, uncomplicated
CPT/HCPCS: 99212; 99214; G0463

== ENCOUNTER 2023-01-25 15:52 | Emergency (ER) | payer BC, SELFPAY ==
[2023-01-25 16:10] VITALS: BP 116/89; PULSE 80; RESP 18; TEMP 36.9; O2SAT 98; BMI 32.2
[2023-01-25 16:35] LABS: UTC Influenza A Antigen Negative (Negative); UTC Influenza B Antigen Negative (Negative)
--- NOTE | 2023-01-25 17:22 | EXP.UTC ---
Discharge Plan Disposition Patient Disposition: Home, Self-Care Condition: Good Prescriptions Prescriptions: New iesjenptkiowhfp-tfsrqcscb-AX [Bromfed DM] 2-30-10 mg/5 mL syrup 10 ml PO Q6H PRN (Reason: cold symptoms) Qty: 200 0RF Referrals Follow up/Referrals: Kai Reina MD [Primary Care Provider] - See instructions Clinical Impressions Clinical Impression: Upper respiratory tract infection Qualifiers: URI type: unspecified viral URI Qualified Code(s): J06.9 - Acute upper respiratory infection, unspecified Instructions Patient Instructions: DI for Viral Upper Respiratory Infection -- Adult Discharge ED Provider: Sun Mercado [facility] HPI General Stated complaint: jeffery,TOLENTINO body aches Mode of Arrival: Ambulatory Source of Information: Patient Limitations: No Limitations Time Seen by Provider: 01/25/23 17:22 Description of Symptoms (Recalled from Triage Doc. by RN): PATIENT C/O HEADACHE, BODY ACHES, SINUS PRESSURE AND CHEST CONGESTION X 3 DAYS HEENT Symptoms (Recalled from RN notes): Yes Resp Symptoms (Recalled from RN notes): No Skin Symptoms (Recalled from RN notes): No MS Symptoms (Recalled from RN notes): No Functional Status (Recalled from RN notes): WNL Related Data Previous Rx's Medication Instructions Recorded fuoqpxadwvebzzl-tjyvzzvjqzwghwg-BM 10 ml PO Q6H PRN cold symptoms 01/25/23 2 mg-30 mg-10 mg/5 mL oral syrup #200 mL (Bromfed DM) Allergies Allergy/AdvReac Type Severity Reaction Status Date / Time No Known Allergies Allergy Verified 08/31/19 16:12 Worker's Comp Is this a Worker's Comp case?: No [facility] Disclaimer: The information contained in this section may have been updated after the patient was seen, as this information can be updated by other users. 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) Smoking Status: Current every day smoker tobacco type: cigarettes packs per day: 1 alcohol intake: never substance use type: denies use current occupational status: employed Travel in the last 8 weeks: None household members: family housing: house current occupation: [employer] current occupational exposures/hazards: No caffeine: Yes ROS Obtained: Yes All systems reviewed & no additional complaints except as documented Constitutional Constitutional: Reports system reviewed and no additional complaints, except as documented, Reports body ache, Reports fatigue, Reports headache(s) and Reports malaise Eyes Eyes: Reports system reviewed and no additional complaints, except as documented ENT Ears, Nose, Mouth, and Throat: Reports system reviewed and no additional complaints, except as documented, Reports headache(s), Reports odynophagia, Reports sinus pressure and Reports sore throat Cardiovascular Cardiovascular: Reports system reviewed and no additional complaints, except as documented Respiratory Respiratory: Reports system reviewed and no additional complaints, except as documented and Reports non-productive cough Gastrointestinal Gastrointestingal: Reports system reviewed and no additional complaints, except as documented and odynophagia Genitourinary Female Genitourinary: Reports system reviewed and no additional complaints, except as documented Musculoskeletal Musculoskeletal: Reports system reviewed and no additional complaints, except as documented and Reports myalgias Integumentary/Breasts Skin/Breast: Reports system reviewed and no additional complaints, except as documented Neurologic Neurologic: Reports system reviewed and no additional complaints, except as documented and Reports headache(s) Endocrine Endocrine: Reports system reviewed and no additional complaints, except as documented and Reports fatigue Hematologic/Lymphatic Henatologic/Lymphatic: Reports system reviewed and no additional complaints, except as documented Allergic/Immunologic Allergic/Immunologic: Reports system reviewed and no additional complain
[2023-01-25 17:42] LABS: UTC Strep Screen (Rapid) Negative (Negative)
[2023-01-25 17:55] VITALS: BP 116/89; PULSE 80; RESP 18; TEMP 36.9; O2SAT 98
== END 2023-01-25 17:59 | disposition home or self-care (01) ==
PROVIDERS: Emergency Provider Nurse Practitioner Family; PCP Family Medicine
DX: B34.9 Viral infection, unspecified (principal); J06.9 Acute upper respiratory infection, unspecified; R51.9 Headache, unspecified; F17.210 Nicotine dependence, cigarettes, uncomplicated
CPT/HCPCS: 87804; 87880; 99212; 99214; G0463

== ENCOUNTER 2023-11-02 11:14 | Emergency (ER) | payer BC, SELFPAY ==
[2023-11-02 11:16] VITALS: BP 159/94; PULSE 79; RESP 16; TEMP 36.6; O2SAT 98; BMI 32.0
--- NOTE | 2023-11-02 12:33 | CT_ITS ---
FINAL REPORT TECHNIQUE: Oral and IV contrast enhanced exam CLINICAL HISTORY: periumbilical pain COMPARISON: None FINDINGS: Abdomen: No acute density is seen within the lung bases. The gallbladder is unremarkable. Solid abdominal organs are unremarkable. No bowel obstruction is present. There is no free air. No fluid collection is seen. There is no adenopathy. Pelvis: The appendix is normal. No bowel wall thickening is present. There is no free fluid. No pelvic mass is seen. The uterus has been surgically resected. No adnexal masses are visualized. IMPRESSION: Unremarkable exam Reviewed, Interpreted and Dictated by Kai Gee MD Transcribed by Lisa Vasquez Authenticated and [facility]
--- NOTE | 2023-11-02 12:36 | HMH.EDGENADL ---
Discharge Plan Disposition Patient Disposition: Home, Self-Care Prescriptions Prescriptions: New ondansetron 4 mg tablet,disintegrating 4 mg PO Q8H PRN (Reason: nausea and vomiting) 4 Days Qty: 12 0RF No Action wjgqvkthhhhmbml-qnqiucrbg-PG [Bromfed DM] 2-30-10 mg/5 mL syrup 10 ml PO Q6H PRN (Reason: cold symptoms) Qty: 200 0RF Referrals Follow up/Referrals: Clarke Jackson MD [Primary Care Provider] - See instructions Activity Restrictions/Add. Instructions Additional Instructions/Restrictions: At this time it was felt you are safe to be discharged home. If new or worsening symptoms please do not hesitate to return the emergency department. If symptoms persist please follow-up with your family doctor as you are able. Please take your medication as prescribed. Clinical Impressions Clinical Impression: Abdominal pain, Vomiting Instructions Patient Instructions: DI for Acute Abdominal Pain Discharge ED Provider: Philippe Bernard General Adult HPI General Chief complaint: Abdominal Pain Stated complaint: abd pain Time Seen by Provider: 11/02/23 11:45 Mode of Arrival: Ambulatory Source of Information: Patient Limitations: No Limitations Description of Symptoms (Recalled from ER Triage Doc. by RN): belly pain. currently on antibiotics becauyse her wbc were high History of Present Illness HPI narrative: Patient is a 43-year-old female who presents emergency department for evaluation of abdominal pain and vomiting. Onset was acute, starting on Monday. Positive sick contacts. No dysuria, no diarrhea, last bowel movement yesterday, no chest pain. Patient was seen by her PCP office for vomiting and white blood cell count was reportedly high so she was prescribed antibiotics. She does have severe periumbilical abdominal pain that is intermittent. No other acute complaints at this time. Related Data Previous Rx's Medication Instructions Recorded fbjatndmacqczpe-krowkarysrtvthf-LU 10 ml PO Q6H PRN cold symptoms 01/25/23 2 mg-30 mg-10 mg/5 mL oral syrup #200 mL (Bromfed DM) ondansetron 4 mg disintegrating 4 mg PO Q8H PRN nausea and 11/02/23 tablet vomiting 4 days #12 tabs Allergies Allergy/AdvReac Type Severity Reaction Status Date / Time No Known Allergies Allergy Verified 08/31/19 16:12 [facility] Disclaimer: The information contained in this section may have been updated after the patient was seen, as this information can be updated by other users. 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 current occupational exposures/hazards: No caffeine: Yes ROS Obtained: Yes Systems reviewed as appropriate & no additional complaints except as documented Physical Exam General General appearance: alert and in no apparent distress Head Head exam: atraumatic and normocephalic Eye Eye exam: Present PERRL and EOMI ENT ENT exam: Present mucous membranes moist Neck Neck exam: Present normal inspection Chest Chest inspection: Present normal inspection and symmetric chest wall rise Respiratory Respiratory exam: Absent respiratory distress Cardiovascular Cardiovascular exam: Present regular rate and normal rhythm Abdominal Exam Abdominal exam: Present soft and tenderness (Periumbilical) Extremities Exam Extremities exam: Present normal inspection Neurological Exam Neurological exam: Present alert Psychiatric Psychiatric exam: Present normal affect Skin Skin exam: Present warm and dry Medical Decision Making Greg Inquiry Pt receiving controlled substance: No Vital Signs: 11/02/23 11:16 11/02/23 12:43 Temperature 98 F Temperature Source Oral Pulse Rate 64 Pulse Rate [Right] 79 Respiratory Rate 16 Blood Pressure 125/77 Blood Pressure [Right Arm] 159/94 H Blood Pressure Mean [Right Arm] 115 02 Sat by Pulse Oximetry 98 96 Oxygen Delivery Method Room Air Room Air Lab Data Lab Results 11/02/23 11:30: WBC 7.2, RBC 4.11 L, Hgb 13.7, Hct 42.5, MCV 103.5 H, MCH 33.3 H, MCHC 32.2, RDW 13.5, Plt Count 317, MPV 8.0, Neut % (Auto) 61.5, Lymph % (Auto) 30.2, [place] % (Auto) 5.8, Eos % (Auto) 1.7, Baso % (Auto) 0.9, Neut # (Auto) 4.4, Lymph # (Auto) 2.2, [place] # (Auto) 0.4, Eos # (Auto) 0.1, Baso # (Auto) 0.1, Sodium 139, Potassium 4.0, Chloride 112 H, Carbon Dioxide 24, Anion Gap 7.0, BUN 11, Creatinine 0.50 L, Estimated Creat Clear 184, Estimated GFR 135, Est GFR ( Amer) 164, Glucose 107 H, Calcium 9.1, Total Bilirubin 0.8, AST 36, ALT 16, Alkaline Phosphatase 67, Total Protein 6.4, Albumin 3.9, Globulin 2.5, Albumin/Globulin Ratio 1.6, Lipase 36, Urine Color Yellow, Urine Appearance Clear, Urine pH 6.0, Ur Specific [place] >= 1.030, Urine Protein Negative, Urine Glucose (UA) Negative, Urine Ketones Negative, Urine Blood Trace-i, Urine Nitrate Negative, Urine Bilirubin 1+ A, Urine Urobilinogen 0.2, Ur Leukocyte Esterase Negative, Urine RBC Occasional, Urine WBC Occasional, Ur Squamous Epith Cells 3-5, Urine Bacteria Trace, Urine Mucus 1+, Urine HCG, Qual Negative 11/02/23 11:30 11/02/23 11:30 Orders (Tests/Meds): ED MEDICATIONS Discontinued Medications Generic Name Dose Route Start Last Admin Trade Name Freq PRN Reason Stop Dose Admin Acetaminophen 1,000 mg 11/02/23 12:33 11/02/23 12:55 Acetaminophen 1,000mg/100ml Vial IV 11/02/23 12:34 1,000 mg ONCE ONE Administration Lactated Ringer's 1,000 mls @ 999 mls/hr 11/02/23 12:33 11/02/23 12:55 Lactated Ringer's 1000 Ml Bag IV 11/02/23 13:33 999 mls/hr .Q1H1M ONE Administration Iopamidol 75 ml 11/02/23 13:05 11/02/23 13:08 Iopamidol-370 (76%);100ml Bottle IV 11/02/23 13:06 75 ml ONCE ONE Administration Ketorolac Tromethamine 30 mg 11/02/23 12:33 11/02/23 12:55 Ketorolac 30mg/Ml Vial IV 11/02/23 12:34 30 mg ONCE ONE Administration Ondansetron HCl 4 mg 11/02/23 12:33 11/02/23 12:55 Ondansetron 4mg/2ml Vial IV 11/02/23 12:34 4 mg ONCE ONE Administration Sodium Chloride 10 ml 11/02/23 13:05 11/02/23 13:07 Sodium Chloride 0.9% 10ml Syr (Rad Only) IV 11/02/23 13:06 10 ml ONCE ONE Administration ORDERS Category Date Time Status CT abdomen pelvis w con Stat Cat Scan 11/02/23 12:33 Completed CBC w/Auto Diff [Complete Blood Count Auto Diff] Stat Lab 11/02/23 11:30 Completed CMP [Comprehensive Metabolic Panel] Stat Lab 11/02/23 11:30 Completed Lipase Stat Lab 11/02/23 11:30 Completed UA [Urinalysis and Microscopic] Stat Lab 11/02/23 11:30 Completed Urine , HCG Qual. Stat Lab 11/02/23 11:30 Completed Medical Decision Narrative: In summary patient is a 43-year-old female past medical history described above who presents emergency department for evaluation of periumbilical abdominal pain and vomiting. Patient is hemodynamically stable nontoxic-appearing upon arrival, afebrile. Differential diagnosis includes viral syndrome, pancreatitis, appendicitis, urinary tract infection, among others. Workup will be conducted with hematologic labs, urinalysis, lipase, CT abdomen pelvis IV contrast. Initial interventions include crystalloid bolus, Toradol, Tylenol. Workup reviewed by me, hematologic labs are nonactionable, no MAVIS or critical electrolyte abnormality, no leukocytosis, no acute blood loss anemia lipase normal urinalysis patient is non, urinalysis interpreted by me, not consistent with infection. CT abdomen pelvis shows no acute pathology. Upon repeat evaluation patient remained hemodynamically stable and underwent p.o. challenge and was successful and is appropriate for outpatient management at this time. Patient was given return precautions. Critical Care Critical Care Time Critical Care Time: No
[2023-11-02 12:43] VITALS: BP 125/77; PULSE 64; O2SAT 96
[2023-11-02 12:43] LABS: Microscopic, Urine URINE MICROSCOPIC (MICROSCOPIC)
[2023-11-02 12:44] LABS: Basophils # 0.1 K/mm3 (0-0.2); Basophils % 0.9 % (0.1-2.0); Eosinophils # 0.1 K/mm3 (0.0-0.4); Eosinophils % 1.7 % (0.1-12.0); Hematocrit 42.5 % (37.0-47.0); Hemoglobin 13.7 g/dL (12.2-16.2); Lymphocytes # 2.2 K/mm3 (0.7-4.5); Lymphocytes % 30.2 % (10-50); Mean Corpuscular HGB Conc 32.2 g/dL (31.8-35.4); Mean Corpuscular Hemoglobin 33.3 pg (27.0-31.2); Mean Corpuscular Volume 103.5 fl (81-99); Monocytes # 0.4 K/mm3 (0.1-1.0); Monocytes % 5.8 % (1.7-9.3); Neutrophils # 4.4 K/mm3 (1.8-7.8); Neutrophils % 61.5 % (37.0-80.0); Platelet Count 317 K/mm3 (142-424); Red Blood Count 4.11 M/mm3 (4.20-5.40); Red Cell Distribution Width 13.5 % (11.5-17.5); White Blood Count 7.2 K/mm3 (4.8-10.8)
--- NOTE | 2023-11-02 12:44 | PC.NURSE ---
ROUNDED ON PT STATES SHE IS GOOD AT THIS TIME,CALL LIGHT IN REACH
[2023-11-02 12:45] LABS: Appearance,Urine CLEAR (Clear); Blood, Urine TRACE-I (Negative); Chloride 112 mmol/L (98-107); Color,Urine YELLOW (Yellow); Glucose,Urine (UA) Negative (Negative); Ketones,Urine Negative (Negative); Leukocyte Esterase,Urine Negative (Negative); Nitrate,Urine Negative (Negative); Protein,Urine Negative (Negative); Sodium 139 mmol/L (136-145); Specific Gravity, Urine >= 1.030 (1.005-1.030); Urobilinogen,Urine 0.2 EU/dl (0.2)
[2023-11-02 12:46] LABS: Urine Pregnancy, HCG Qual. Negative (Negative)
[2023-11-02 12:48] LABS: Alanine Aminotransferase 16 U/L (12-78); Albumin Level 3.9 g/dl (3.5-5.0); Albumin/Globulin Ratio 1.6 (1.1-1.8); Alkaline Phosphatase 67 U/L (38-126); Aspartate Amino Transferase 36 U/L (14-36); Bilirubin,Total 0.8 mg/dl (0.2-1.3); Blood Urea Nitrogen 11 mg/dl (7-17); Calcium 9.1 mg/dl (8.4-10.2); Carbon Dioxide 24 mmol/L (22.0-30.0); Creatinine Clearance Estimated 184 mL/min (50-200); Estimated Glomerular Filt Rate 135 ml/min (>60); GFR (African American) 164 ML/MIN (>60); Globulin 2.5 g/dL (1.3-3.2); Glucose 107 mg/dl (74-100); Lipase 36 U/L (23-300); Total Protein,Serum 6.4 g/dl (6.3-8.2)
[2023-11-02 12:49] LABS: Bilirubin,Urine 1+ (Negative)
[2023-11-02] MEDS: KETOROLAC 30MG/ML VIAL 30 MG IV (12:55)
[2023-11-02] MEDS: ONDANSETRON 4MG/2ML VIAL 4 MG IV (12:55)
[2023-11-02] MEDS: ACETAMINOPHEN 1,000MG/100ML VIAL 1000 MG IV (12:55)
[2023-11-02] MEDS: LACTATED RINGERS 1000ML 1,000 ML 999 ML IV (12:55)
[2023-11-02 13:02] LABS: Bacteria,Urine Trace /lpf; Mucus,Urine 1+ /lpf; RBC,Urine Occasional #/hpf (0-3); WBC,Urine Occasional #/hpf (0-3)
[2023-11-02] MEDS: SODIUM CHLORIDE 0.9% 10ML SYR (RAD ONLY) 10 ML IV (13:07)
[2023-11-02] MEDS: IOPAMIDOL-370 (76%);100ML BOTTLE 75 ML IV (13:08)
--- NOTE | 2023-11-02 14:35 | PC.NURSE ---
ice chips and stary given to pt for PO challenge
[2023-11-02 14:57] VITALS: BP 114/62; PULSE 52; RESP 16; TEMP 36.7
== END 2023-11-02 14:58 | disposition home or self-care (01) ==
PROVIDERS: Emergency Provider Emergency Medicine; PCP Family Medicine
DX: R10.33 Periumbilical pain (principal); R11.2 Nausea with vomiting, unspecified
CPT/HCPCS: 74177; 80053; 81001; 81025; 83690; 85025; 96361; 96374; 96375; 99285; J0131; J2405; Q9967

== ENCOUNTER 2023-11-15 07:00 | Emergency (ER) | payer BC, SELFPAY ==
[2023-11-15] VITALS (8 sets, daily range): BP systolic 96–111; BP diastolic 60–82; PULSE 68–92; RESP 13–18; TEMP 36.7; O2SAT 94–97; BMI 32.0
[2023-11-15] MEDS: METOCLOPRAMIDE HCL 10MG/2ML VIAL 10 MG IVP (07:32)
[2023-11-15] MEDS: KETOROLAC 30MG/ML VIAL 15 MG IV (07:32)
[2023-11-15] MEDS: LACTATED RINGERS 1000ML 2,000 ML 999 ML IV (07:32)
[2023-11-15 07:40] LABS: Alanine Aminotransferase 21 U/L (12-78); Albumin Level 3.9 g/dl (3.5-5.0); Albumin/Globulin Ratio 1.5 (1.1-1.8); Alkaline Phosphatase 68 U/L (38-126); Anion Gap 12.4 mEq/L (5-15); Aspartate Amino Transferase 26 U/L (14-36); Bilirubin,Total 0.5 mg/dl (0.2-1.3); Blood Urea Nitrogen 9 mg/dl (7-17); Calcium 8.4 mg/dl (8.4-10.2); Carbon Dioxide 24 mmol/L (22.0-30.0); Chloride 106 mmol/L (98-107); Creatinine Clearance Estimated 184 mL/min (50-200); Estimated Glomerular Filt Rate 135 ml/min (>60); GFR (African American) 164 ML/MIN (>60); Globulin 2.6 g/dL (1.3-3.2); Glucose 109 mg/dl (74-100); Lipase 32 U/L (23-300); Potassium 3.4 mmoL/L (3.5-5.1); Sodium 139 mmol/L (136-145); Total Protein,Serum 6.5 g/dl (6.3-8.2)
[2023-11-15 07:45] LABS: Basophils % 0.5 % (0.1-2.0); Eosinophils # 0.1 K/mm3 (0.0-0.4); Eosinophils % 2.2 % (0.1-12.0); Hemoglobin 13.2 g/dL (12.2-16.2); Lymphocytes % 18.8 % (10-50); Mean Corpuscular HGB Conc 31.5 g/dL (31.8-35.4); Mean Corpuscular Hemoglobin 32.3 pg (27.0-31.2); Mean Corpuscular Volume 102.7 fl (81-99); Monocytes # 0.3 K/mm3 (0.1-1.0); Monocytes % 5.8 % (1.7-9.3); Neutrophils # 3.7 K/mm3 (1.8-7.8); Neutrophils % 72.7 % (37.0-80.0); Platelet Count 290 K/mm3 (142-424); Red Blood Count 4.09 M/mm3 (4.20-5.40); Red Cell Distribution Width 13.6 % (11.5-17.5); White Blood Count 5.1 K/mm3 (4.8-10.8)
[2023-11-15 07:46] LABS: C-Reactive Protein 38.9 mg/L (0-4)
--- NOTE | 2023-11-15 08:10 | HMH.EDGENADL ---
Discharge Plan Disposition Patient Disposition: Home, Self-Care Prescriptions Prescriptions: New prednisone 20 mg tablet 40 mg PO DAILY 5 Days Qty: 10 0RF metoclopramide HCl [Reglan] 10 mg tablet 10 mg PO Q6H PRN (Reason: nausea and vomiting) Qty: 20 0RF No Action ondansetron 4 mg tablet,disintegrating 4 mg PO Q8H PRN (Reason: nausea and vomiting) 4 Days Qty: 12 0RF Referrals Follow up/Referrals: Kai Reina MD [Primary Care Provider] - See instructions Activity Restrictions/Add. Instructions Additional Instructions/Restrictions: Follow-up with family doctor within 48 hours to establish care for this visit to the emergency department. Call your bin packer and set up follow-up. Tell them about your symptoms, that you were seen in the emergency department, and your markers of inflammation were elevated (CRP 40, ESR 21). Reglan sent to the pharmacy, you can take this every 6 hours as needed. Prednisone also sent to the pharmacy for 5-day burst. While pharmacy, also burr picker multivitamin return to the emergency department if you have any other concerning signs or symptoms. Clinical Impressions Clinical Impression: Vomiting, Abdominal pain Discharge ED Provider: Tk Funes General Adult HPI General Chief complaint: Headache Stated complaint: vomitting, nausea, headaches Time Seen by Provider: 11/15/23 07:11 Mode of Arrival: Ambulatory Source of Information: Patient Limitations: No Limitations Description of Symptoms (Recalled from ER Triage Doc. by RN): pt reports to ED with c/o headache, bodyaches, vomitting. pt reports she began to vomit this am approx 0300. pt states that she has taken zofran but it has not helped. History of Present Illness HPI narrative: 43-year-old female history of von Willebrand disease status post hysterectomy for menorrhagia, chronic abdominal pain and vomiting presenting with multiple complaints. Patient states that she has been sick on and off for the past month, intermittently gets better. Was seen by her family doctor, states they were concerned for bacterial infection and gave me antibiotics, but was never given a true diagnosis. States that she was seen in the emergency department a couple days later, workup unremarkable including CT scan. She was given Zofran and sent home. States that Zofran helps with nausea and vomiting, however patient still having abdominal cramping and intermittent vomiting. Constant nausea, vomiting and retching generally with p.o. intake including liquids and solids. States that she is not able to tolerate much p.o. intake, but she is still urinating and defecating without issue. No diarrhea, constipation, blood in her stool. She does have a family history of Crohn's disease, no diagnosed history in her. No fevers, chills, night sweats, unintended weight loss, urinary symptoms, jaundice, or any other concerns. Please note that above description of symptoms, in this electronic medical record under categorization of recalled from ER triage doctor by RN are reflective of an initial nursing assessment, however, is not reflective of my full history and physical exam that was personally taken and clarified. Consequentially, this preceding description of symptoms, which may include the patient's categorized chief complaint in the EMR, do not reflect my personal clinical impression, and the ultimate description of history of present illness and patient stated complaints should be deferred to this section of the note. Unless stated otherwise or congruent with this section of the note, additional signs, symptoms, or incongruence should be interpreted as inaccurate with my clinical impression. Related Data Previous Rx's Medication Instructions Recorded ondansetron 4 mg disintegrating 4 mg PO Q8H PRN nausea and 11/02/23 tablet vomiting 4 days #12 tabs metoclopramide HCl 10 mg tablet 10 mg PO Q6H PRN nausea and 11/15/23 (Reglan) vomiting #20 tabs prednisone 20 mg tablet 40 mg (2 x 20 mg) PO DAILY 5 days 11/15/23 #10 tabs Allergies Allergy/AdvReac Type Severity Reaction Status Date / Time No Known Allergies Allergy Verified 11/15/23 07:44 [facility] Disclaimer: The information contained in this section may have been updated after the patient was seen, as this information can be updated by other users. 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 current occupational exposures/hazards: No caffeine: Yes ROS Obtained: Yes All systems reviewed & no additional complaints except as documented Physical Exam General General appearance: alert and in no apparent distress Head Head exam: atraumatic and normocephalic Eye Eye exam: Present normal appearance, PERRL and EOMI ENT ENT exam: Present mucous membranes dry Neck Neck exam: Present normal inspection, full ROM and trachea midline Respiratory Respiratory exam: Absent respiratory distress, wheezes, stridor, accessory muscle use or prolonged expiratory phase Cardiovascular Cardiovascular exam: Present normal rhythm and tachycardia Abdominal Exam Abdominal exam: Present soft; Absent distention, tenderness, guarding, rebound or rigidity Extremities Exam Extremities exam: Absent edema Neurological Exam Neurological exam: Present alert, oriented X3, CN II-XII intact and normal gait; Absent motor sensory deficit Skin Skin exam: Present warm, dry and rash (Scattered, excoriated, erythematous rash left upper extremity); Absent diaphoresis or erythema Medical Decision Making Medical Records Medical records reviewed: Yes I reviewed the patient's medical records. Greg Inquiry Pt receiving controlled substance: No Greg was queried for this patient: No Vital Signs: 11/15/23 07:02 11/15/23 07:07 11/15/23 07:30 Temperature 98.1 F Temperature Source Oral Pulse Rate 92 H 78 Pulse Rate [Left Radial] 90 Respiratory Rate 13 Blood Pressure 111/82 100/70 L Blood Pressure [Right Arm] 111/82 Blood Pressure Mean [Right Arm] 91 02 Sat by Pulse Oximetry 96 95 96 Oxygen Delivery Method Room Air Room Air Room Air 11/15/23 08:00 11/15/23 08:30 Temperature Temperature Source Pulse Rate 77 72 Pulse Rate [Left Radial] Respiratory Rate Blood Pressure 102/64 L 96/66 L Blood Pressure [Right Arm] Blood Pressure Mean [Right Arm] 02 Sat by Pulse Oximetry 96 97 Oxygen Delivery Method Room Air Lab Data Lab Results 11/15/23 07:25: WBC 5.1, RBC 4.09 L, Hgb 13.2, Hct 42.0, MCV 102.7 H, MCH 32.3 H, MCHC 31.5 L, RDW 13.6, Plt Count 290, MPV 8.0, Neut % (Auto) 72.7, Lymph % (Auto) 18.8, [place] % (Auto) 5.8, Eos % (Auto) 2.2, Baso % (Auto) 0.5, Neut # (Auto) 3.7, Lymph # (Auto) 1.0, [place] # (Auto) 0.3, Eos # (Auto) 0.1, Baso # (Auto) 0.0, ESR 21 H, Sodium 139, Potassium 3.4 L, Chloride 106, Carbon Dioxide 24, Anion Gap 12.4, BUN 9, Creatinine 0.50 L, Estimated Creat Clear 184, Estimated GFR 135, Est GFR ( Amer) 164, Glucose 109 H, Calcium 8.4, Total Bilirubin 0.5, AST 26, ALT 21, Alkaline Phosphatase 68, C-Reactive Protein 38.9 H, Total Protein 6.5, Albumin 3.9, Globulin 2.6, Albumin/Globulin Ratio 1.5, Lipase 32 11/15/23 07:25 11/15/23 07:25 Orders (Tests/Meds): ED MEDICATIONS Generic Name Dose Route Start Last Admin Trade Name Freq PRN Reason Stop Dose Admin Lactated Ringer's 2,000 mls @ 999 mls/hr 11/15/23 07:20 11/15/23 07:32 Lactated Ringer's 1000 Ml Bag IV 11/15/23 09:20 999 mls/hr .Q2H1M ONE Administration Discontinued Medications Generic Name Dose Route Start Last Admin Trade Name Freq PRN Reason Stop Dose Admin Dexamethasone Sodium Phosphate 10 mg 11/15/23 08:29 11/15/23 08:52 Dexamethasone 4mg/Ml 1ml Vial IV 11/15/23 08:30 10 mg ONCE ONE Administration Ketorolac Tromethamine 15 mg 11/15/23 07:20 11/15/23 07:32 Ketorolac 30mg/Ml Vial IV 11/15/23 07:21 15 mg ONCE ONE Administration Metoclopramide HCl 10 mg 11/15/23 07:20 11/15/23 07:32 Metoclopramide Hcl 10mg/2ml Vial IVP 11/15/23 07:21 10 mg ONCE ONE Administration ORDERS Category Date Time Status CBC w/Auto Diff [Complete Blood Count Auto Diff] Stat Lab 11/15/23 07:25 Completed CMP [Comprehensive Metabolic Panel] Stat Lab 11/15/23 07:25 Completed CRP [C-Reactive Protein] Stat Lab 11/15/23 07:25 Completed ESR [Erythrocyte Sedimentation Rate] Stat Lab 11/15/23 07:25 Completed Lipase Stat Lab 11/15/23 07:25 Completed Medical Decision Narrative: 43-year-old female history of von Willebrand disease status post hysterectomy for menorrhagia, chronic abdominal pain and vomiting presenting with multiple complaints. Patient states that she has been sick on and off for the past month, intermittently gets better. Was seen by her family doctor, states they were concerned for bacterial infection and gave me antibiotics, but was never given a true diagnosis. States that she was seen in the emergency department a couple days later, workup unremarkable including CT scan. She was given Zofran and sent home. States that Zofran helps with nausea and vomiting, however patient still having abdominal cramping and intermittent vomiting. Constant nausea, vomiting and retching generally with p.o. intake including liquids and solids. States that she is not able to tolerate much p.o. intake, but she is still urinating and defecating without issue. No diarrhea, constipation, blood in her stool. She does have a family history of Crohn's disease, no diagnosed history in her. No fevers, chills, night sweats, unintended weight loss, urinary symptoms, jaundice, or any other concerns. History was obtained via conversation with patient. On arrival, patient hemodynamically stable, alert, oriented x4, appropriate, GCS 15, moving all extremities spontaneously, pupils equal and reactive to light. Full physical exam performed and significant for she does have scattered, excoriated, erythematous rash on her left upper extremity. Not elsewhere. Dry mucous membranes, mildly hypotensive and tachycardic with systolic right around 100, diastolic 82, heart rate in the 90s. Abdomen is soft, nontender, nondistended, cardiopulmonary exam within normal. Differential includes gastroenteritis, pancreatitis, gastroparesis, gastric outlet obstruction, cholecystitis, IBS, IBD, among others, Patient was given 2 L IV fluids, Reglan for symptomatic management and correction of underlying abnormalities. Workup independently interpreted and significant for CBC acutely nonactionable, but patient does have erythrocyte macrocytosis. nonactionable chemistry. Kidney function within normal limits. LFTs normal. Lipase negative. CRP elevated at 40 ESR elevated at 21. On reevaluation, patient resting comfortably in bed, not retching, feels better after fluids and Reglan. Given elevated ESR, CRP, family history of IBD given 10 mg Decadron IV. Given patient presentation, workup, history, this most likely represents mild torsion such as celiac disease or similar, versus IBS versus IBD. Could also be gastroenteritis. CT scan of the abdomen and pelvis was considered, however given improvement with supportive care, benign abdominal exam, independent interpretation of previous CT scan without any acute or concerning pathology, I feel it is unnecessary. Recommended that she follow-up with gastroenterology outpatient, she has a contact in mind. Patient to be sent home with because patient at baseline without signs or symptoms of clinical decompensation, deemed appropriate for discharge. Results were relayed to patient who voiced understanding and were agreeable to outpatient management and follow up. I discussed my clinical impression with patient and answered all questions. At this time, the evidence for any other entities in the differential is insufficient to warrant any further testing or ED observation. This was explained as well. Advisory was given that persistent or worsening symptoms require further evaluation. I confirmed the understanding of this discussion. Sent home with p.zaid Reglan, prednisone burst, and close return precautions. Critical Care Critical Care Time Critical Care Time: No
--- NOTE | 2023-11-15 08:49 | PC.NURSE ---
rounded on pt no needs at this time,call light in reach
[2023-11-15] MEDS: DEXAMETHASONE 4MG/ML 1ML VIAL 10 MG IV (08:52)
[2023-11-15 09:06] LABS: Erythrocyte Sedimentation Rate 21 mm/hr (0-20)
== END 2023-11-15 09:49 | disposition home or self-care (01) ==
PROVIDERS: Emergency Provider Emergency Medicine; PCP Family Medicine
DX: R10.9 Unspecified abdominal pain (principal); R11.2 Nausea with vomiting, unspecified; F17.210 Nicotine dependence, cigarettes, uncomplicated
CPT/HCPCS: 80053; 83690; 85025; 85651; 86140; 96361; 96374; 96375; 99284

== ENCOUNTER 2023-11-16 10:06 | Outpatient (CLI) | payer BC, SELFPAY ==
[2023-11-16 10:51] LABS: Basophils % 0.3 % (0.1-2.0); Eosinophils % 0.1 % (0.1-12.0); Hematocrit 39.7 % (37.0-47.0); Hemoglobin 12.8 g/dL (12.2-16.2); Lymphocytes # 1.1 K/mm3 (0.7-4.5); Mean Corpuscular HGB Conc 32.2 g/dL (31.8-35.4); Mean Corpuscular Hemoglobin 33.1 pg (27.0-31.2); Mean Corpuscular Volume 102.8 fl (81-99); Monocytes # 0.2 K/mm3 (0.1-1.0); Monocytes % 2.9 % (1.7-9.3); Neutrophils # 5.7 K/mm3 (1.8-7.8); Neutrophils % 81.7 % (37.0-80.0); Platelet Count 297 K/mm3 (142-424); Red Blood Count 3.87 M/mm3 (4.20-5.40); Red Cell Distribution Width 13.6 % (11.5-17.5)
[2023-11-16 11:19] LABS: Alanine Aminotransferase 16 U/L (12-78); Albumin Level 3.9 g/dl (3.5-5.0); Albumin/Globulin Ratio 1.6 (1.1-1.8); Alkaline Phosphatase 66 U/L (38-126); Amylase 35 U/L (30-110); Anion Gap 12.6 mEq/L (5-15); Aspartate Amino Transferase 23 U/L (14-36); Bilirubin,Total 0.4 mg/dl (0.2-1.3); Blood Urea Nitrogen 8 mg/dl (7-17); Calcium 9.3 mg/dl (8.4-10.2); Carbon Dioxide 24 mmol/L (22.0-30.0); Chloride 107 mmol/L (98-107); Estimated Glomerular Filt Rate 135 ml/min (>60); GFR (African American) 164 ML/MIN (>60); Globulin 2.4 g/dL (1.3-3.2); Glucose 133 mg/dl (74-100); Lipase 32 U/L (23-300); Potassium 3.6 mmoL/L (3.5-5.1); Sodium 140 mmol/L (136-145); Total Protein,Serum 6.3 g/dl (6.3-8.2)
[2023-11-17 18:31] LABS: H. pylori Breath Test Negative (Negative)
[2023-11-21 11:25] LABS: F001-IgE Egg White 0.16 kU/L (Class 0/I); F002-IgE Milk 0.49 kU/L (Class I); F003-IgE Codfish <0.10 kU/L (Class 0); F004-IgE Wheat <0.10 kU/L (Class 0); F010-IgE Sesame Seed <0.10 kU/L (Class 0); F013-IgE Peanut <0.10 kU/L (Class 0); F014-IgE Soybean <0.10 kU/L (Class 0); F024-IgE Shrimp <0.10 kU/L (Class 0); F256-IgE Walnut <0.10 kU/L (Class 0); F338-IgE Scallop <0.10 kU/L (Class 0)
== END 2023-11-16 23:59 | disposition home or self-care (01) ==
LOC: LAB 10:07
PROVIDERS: PCP Family Medicine; Visit Provider Physician Assistant
DX: R10.13 Epigastric pain (principal)
CPT/HCPCS: 36415; 80053; 82150; 83013; 83690; 85025; 86003; 86008

== ENCOUNTER 2023-11-23 16:10 | Outpatient (CLI) | payer BC, SELFPAY ==
[2023-11-25 15:19] LABS: Deamidated Gliadin Abs, IgA 9 units (0-19); Deamidated Gliadin Abs, IgG 2 units (0-19); Tissue Transglutaminase IgA Ab <2 U/mL (0-3); Tissue Transglutaminase IgG Ab <2 U/mL (0-5)
[2023-11-28 09:08] LABS: Endomysial IgA Antibody Negative (Negative)
[2023-11-29 09:13] LABS: Reticulin IgA Antibody Negative titer (Neg:<1:2.5)
== END 2023-11-23 23:59 | disposition home or self-care (01) ==
LOC: LAB 16:10
PROVIDERS: PCP Family Medicine; Visit Provider Physician Assistant
DX: R10.13 Epigastric pain (principal)
CPT/HCPCS: 83516; 86255; 86256

== ENCOUNTER 2024-03-14 15:14 | Outpatient (CLI) | payer BC, SELFPAY ==
--- NOTE | 2024-03-14 15:23 | MM_ITS ---
PROCEDURE INFORMATION: Exam: MG Bilateral Screening 3D Mammography Exam date and time: 03/14/2024 3:22 PM Age: 44 years old Clinical indication: Screening examination TECHNIQUE: Imaging protocol: Bilateral Screening tomosynthesis and 2D mammography including computer-aided detection (CAD) when performed. COMPARISON: No relevant prior studies available. FINDINGS: MAMMOGRAPHY: Breast composition: The breasts are heterogeneously dense, which may obscure small masses. Mass: 0.7 cm ovoid mass in the middle third of the left upper outer quadrant. 0.6 cm ovoid mass in the posterior third of the right approximate 9 o'clock axis Architectural distortion: None. Calcifications: No suspicious calcifications. Asymmetric density: None. Skin thickening: None. Axillary adenopathy: None. IMPRESSION: Patient to be recalled for targeted bilateral breast ultrasound for further evaluation of bilateral breast masses ASSESSMENT: BI-RADS Category 0: Incomplete- Need Additional Imaging Evaluation
== END 2024-03-14 23:59 | disposition home or self-care (01) ==
LOC: RAD 15:15
PROVIDERS: PCP Family Medicine; Visit Provider Physician Assistant
DX: Z12.31 Encounter for screening mammogram for malignant neoplasm of breast (principal)
CPT/HCPCS: 77063; 77067

== ENCOUNTER 2024-03-28 15:13 | Outpatient (CLI) | payer BC, SELFPAY ==
--- NOTE | 2024-03-28 | US_ITS ---
PROCEDURE INFORMATION: Exam: US Right Breast, Complete US Left Breast, Complete Exam date and time: 03/28/2024 3:21 PM Age: 44 years old Clinical indication: Callback for masses in both breasts on screening mammogram dated 03/14/2024. TECHNIQUE: Imaging protocol: Complete ultrasound of all four quadrants of the right breast and the retroareolar regions, including ultrasound of the axilla when performed. Complete ultrasound of all four quadrants of the left breast and the retroareolar regions, including ultrasound of the axilla when performed. COMPARISON: MG MM DIG SCREENING MAMM BI W/CAD 03/14/2024 3:22 PM FINDINGS: ULTRASOUND: Breast ultrasound findings: Scanning of the left breast in the upper outer quadrant demonstrates a cyst at the 1 o'clock axis 5 cm from the nipple measuring 0.8 x 0.9 x 0.7 cm. Scanning of the right breast in the upper-outer quadrant demonstrate a septated cyst measuring 0.4 x 0.4 x 0.4 cm in the 10 o'clock axis, 3 cm from the nipple. Additional clustered cysts are seen at the 10 o'clock axis 1 cm from the nipple measuring 0.7 cm. No suspicious solid mass. There are no suspicious masses, distortion, shadowing, or axillary adenopathy in either breast. IMPRESSION: 1. Findings on the mammogram correlate to benign underlying cysts on ultrasound. 2. Annual bilateral mammographic screening is recommended unless otherwise clinically indicated. ASSESSMENT: BI-RADS Category 2: Benign.
== END 2024-03-28 23:59 | disposition home or self-care (01) ==
LOC: RAD 15:13
PROVIDERS: PCP Family Medicine; Visit Provider Physician Assistant
DX: R92.8 Other abnormal and inconclusive findings on diagnostic imaging of breast (principal)
CPT/HCPCS: 76641

== ENCOUNTER 2024-05-10 08:52 | Outpatient (CLI) | payer BC, SELFPAY ==
[2024-05-10 08:56] LABS: Adenovirus F 40/41, stool Not Detected (NotDetected); Astrovirus Not Detected (NotDetected); Campylobacter Not Detected (NotDetected); Clostridium Difficile A/B, PCR Not Detected (NotDetected); Cryptosporidium Not Detected (NotDetected); Cyclospora Cayetanesis Not Detected (NotDetected); Entamoeba histolytica Not Detected (NotDetected); Enteroaggregative E coli Not Detected (NotDetected); Enterotoxigenic E coli Not Detected (NotDetected); Giardia lamblia Not Detected (NotDetected); Norovirus Not Detected (NotDetected); Plesimonas Shigalloides, PCR Not Detected (NotDetected); Rotavirus A Not Detected (NotDetected); Salmonella, PCR Not Detected (NotDetected); Sapovirus Not Detected (NotDetected); Shiga-like toxin E coli Not Detected (NotDetected); Shigella Enterovasive E coli Not Detected (NotDetected); Vibrio Cholerae Not Detected (NotDetected); Vibrio, PCR Not Detected (NotDetected); Yersinia Entercolitica, PCR Not Detected (NotDetected)
[2024-05-10 11:53] LABS: Enteropathogenic E coli Detected (NotDetected)
[2024-05-14 02:17] LABS: Pancreatic Elastase, Fecal >800 (>200)
[2024-05-14 09:22] LABS: Calprotectin, Fecal 41 ug/g (0-120)
== END 2024-05-10 23:59 | disposition home or self-care (01) ==
LOC: LAB 08:52
PROVIDERS: PCP Family Medicine; Visit Provider Nurse Practitioner Family
DX: R19.8 Other specified symptoms and signs involving the digestive system and abdomen (principal); R19.7 Diarrhea, unspecified; R10.9 Unspecified abdominal pain; K59.00 Constipation, unspecified; R14.0 Abdominal distension (gaseous); Z83.79 Family history of other diseases of the digestive system
CPT/HCPCS: 82656; 83993; 87506

== ENCOUNTER 2024-05-15 10:37 | Emergency (ER) | payer BC, SELFPAY ==
[2024-05-15 11:01] VITALS: BP 125/80; PULSE 81; RESP 16; TEMP 36.9; O2SAT 98; BMI 29.2
--- NOTE | 2024-05-15 11:14 | ED_ITS ---
Discharge Plan Disposition Patient Disposition: Home, Self-Care Prescriptions Prescriptions: New Align 10.5 mg (10 million cell) tablet,chewable 10.5 mg PO BID Qty: 60 1RF No Action azithromycin 250 mg tablet See Rx Instructions PO .COMPLEX Qty: 6 0RF Rx Instructions: For 250 mg dose pack: take 500 mg today (day 1), then 250 mg for 4 days (days 2-5) PO Referrals Follow up/Referrals: Kai Reina MD [Primary Care Provider] - See instructions Activity Restrictions/Add. Instructions Additional Instructions/Restrictions: Call your family doctor to establish care for this visit to the emergency department and schedule follow-up within 48 hours to ensure improvement. If you have any worsening of your condition or any other concerning signs or symptoms, return to the emergency department or your primary care doctor for further evaluation. Avoid antidiarrheals like Imodium. Take probiotic sent to [facility] twice daily. Call Dr. Martin's office to follow-up in the next 7 days if you do not have improvement with the probiotic. Clinical Impressions Clinical Impression: Diarrhea Instructions Patient Instructions: DI for Acute Abdominal Pain Print Language Print Language: Japanese Discharge ED Provider: Tk Funes General Adult HPI General Chief complaint: Abdominal Pain Stated complaint: stomach pain, body pain, E Coli+ Time Seen by Provider: 05/15/24 10:39 Mode of Arrival: Ambulatory Source of Information: Patient Limitations: No Limitations Description of Symptoms (Recalled from ER Triage Doc. by RN): pt presents to ED with c/o body aches and abdominal pain. pt reports that she was diagnosed with e coli on monday and began azithromycin on monday. History of Present Illness HPI narrative: Please note that above description of symptoms, in this electronic medical record under categorization of recalled from ER triage doctor by RN are reflective of an initial nursing assessment, however, is not reflective of my full history and physical exam that was personally taken and clarified. Consequentially, this preceding description of symptoms, which may include the patient's categorized chief complaint in the EMR, do not reflect my personal clinical impression, and the ultimate description of history of present illness and patient stated complaints should be deferred to this section of the note. Unless stated otherwise or congruent with this section of the note, additional signs, symptoms, or incongruence should be interpreted as inaccurate with my clinical impression. Related Data Previous Rx's ?Medication ?Instructions ?Recorded azithromycin 250 mg tablet See Rx Instructions PO .COMPLEX #6 05/10/24 tabs Bifidobacterium infantis 10.5 mg 10.5 mg PO BID #60 tabs 05/15/24 (10 million cell) chewable tablet (Align) Allergies Allergy/AdvReac Type Severity Reaction Status Date / Time No Known Allergies Allergy Verified 05/06/24 13:15 [facility] Disclaimer: The information contained in this section may have been updated after the patient was seen, as this information can be updated by other users. 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 Smoking Status: Current every day smoker tobacco type: cigarettes packs per day: 1 alcohol intake: never substance use type: denies use current occupational status: employed Travel in the last 8 weeks: None household members: family housing: house current occupation: [employer] current occupational exposures/hazards: No caffeine: Yes Other Medical History Have you received the Flu Vaccine for this season: No Have you received the Pneumonia Vaccine: No ROS Obtained: Yes All systems reviewed & no additional complaints except as documented Physical Exam General General appearance: alert Head Head exam: atraumatic and normocephalic Eye Eye exam: Present normal appearance, PERRL and EOMI Neck Neck exam: Present normal inspection, full ROM and trachea midline Respiratory Respiratory exam: Absent respiratory distress, wheezes, stridor, accessory muscle use or prolonged expiratory phase Cardiovascular Cardiovascular exam: Present regular rate, normal rhythm and other (Pulses equal symmetric in upper and lower extremities) Abdominal Exam Abdominal exam: Present soft; Absent distention, tenderness (Not a list to the), guarding, rebound, rigidity or pulsatile mass Extremities Exam Extremities exam: Absent edema Neurological Exam Neurological exam: Present alert, oriented X3 and CN II-XII intact; Absent motor sensory deficit Skin Skin exam: Present warm and dry; Absent diaphoresis or erythema Medical Decision Making Medical Records Medical records reviewed: Yes I reviewed the patient's medical records. Screening: Per USPSTF and CDC recommendations, given the prevalence of disease in our region, it is our hospital?s policy to screen for HIV and viral Hepatitis for all patients aged 18 and over and those with ongoing risk factors. Greg Inquiry Pt receiving controlled substance: No Greg was queried for this patient: No Vital Signs: 05/15/24 11:01 05/15/24 12:02 Temperature 98.4 F 97.9 F Temperature Source Oral Oral Pulse Rate 66 Pulse Rate [Left Radial] 81 Respiratory Rate 16 Blood Pressure 110/61 Blood Pressure [Right Arm] 125/80 Blood Pressure Mean [Right Arm] 95 02 Sat by Pulse Oximetry 98 98 Oxygen Delivery Method Room Air Room Air Lab Data Lab Results 05/15/24 10:42: Urine Color Yellow, Urine Appearance Clear, Urine pH 6.0, Ur Specific Norton 1.025, Urine Protein Negative, Urine Glucose (UA) Negative, Urine Ketones Negative, Urine Blood Trace-i, Urine Nitrate Negative, Urine Bilirubin Negative, Urine Urobilinogen 0.2, Ur Leukocyte Esterase Negative, Urine RBC Occasional, Urine WBC None, Ur Squamous Epith Cells Occasional, Urine Bacteria Trace 05/15/24 10:55: WBC 7.5, RBC 4.27, Hgb 14.3, Hct 42.9, MCV 100.4 H, MCH 33.5 H, MCHC 33.4, RDW 13.3, Plt Count 307, MPV 7.5, Neut % (Auto) 59.8, Lymph % (Auto) 31.1, [place] % (Auto) 6.0, Eos % (Auto) 1.9, Baso % (Auto) 1.2, Neut # (Auto) 4.5, Lymph # (Auto) 2.3, [place] # (Auto) 0.5, Eos # (Auto) 0.1, Baso # (Auto) 0.1, ESR 8, PT 10.6, INR 0.94, APTT 29.1, Sodium 139, Potassium 4.1, Chloride 110 H, Carbon Dioxide 23, Anion Gap 10.1, BUN 9, Creatinine 0.50 L, Estimated Creat Clear 166, Estimated GFR 135, Est GFR ( Amer) 163, Glucose 84, Lactate 1.0, Calcium 8.7, Total Bilirubin 0.8, AST 23, ALT 15, Alkaline Phosphatase 49, C-Reactive Protein 0.8, Total Protein 6.5, Albumin 4.2, Globulin 2.3, Albumin/Globulin Ratio 1.8, Lipase 45, HIV 1&2 Antibody Rapid Nonreactive 05/15/24 11:18: VBG pH 7.35, VBG pCO2 37.0, VBG pO2 91.1 H, VBG HCO3 20.1 L, VBG Total CO2 21.2 L, VBG O2 Saturation 97.0 H, VBG Base Excess -5.5 L, VBG Lactic Acid 1.3 05/15/24 10:55 05/15/24 10:55 Orders (Tests/Meds): ED MEDICATIONS Discontinued Medications Generic Name Dose Route Start Last Admin Trade Name Vielka PRN Reason Stop Dose Admin Acetaminophen 1,000 mg 05/15/24 11:16 05/15/24 11:26 Acetaminophen 500mg Tab PO 05/15/24 11:17 1,000 mg ONCE ONE Administration Iopamidol 80 ml 05/15/24 11:56 05/15/24 12:00 Iopamidol-370 (76%);100ml Bottle IV 05/15/24 11:57 80 ml ONCE ONE Administration Ketorolac Tromethamine 15 mg 05/15/24 11:16 05/15/24 11:26 Ketorolac 30mg/Ml Vial IV 05/15/24 11:17 15 mg ONCE ONE Administration Ondansetron HCl 4 mg 05/15/24 11:16 05/15/24 11:26 Ondansetron 4mg/2ml Vial IV 05/15/24 11:17 4 mg ONCE ONE Administration Sodium Chloride 50 ml 05/15/24 11:56 05/15/24 12:00 0.9 % Sodium Chloride 50 Ml Vial IV 05/15/24 11:57 50 ml ONCE ONE Administration Sodium Chloride 10 ml 05/15/24 11:56 05/15/24 12:00 Sodium Chloride 0.9% 10ml Syr (Rad Only) IV 05/15/24 11:57 10 ml ONCE ONE Administration ORDERS Category Date Time Status CT angio abdomen pelvis Stat Cat Scan 05/15/24 11:16 Taken CRP [C-Reactive Protein] Stat Lab 05/15/24 10:55 Completed Complete Blood Count Auto Diff Stat Lab 05/15/24 10:55 Completed Comprehensive Metabolic Panel Stat Lab 05/15/24 10:55 Completed ESR [Erythrocyte Sedimentation Rate] Stat Lab 05/15/24 10:55 Completed HIV (1&2) Antibody Rapid Stat Lab 05/15/24 10:55 Completed Hep C Ab with Reflex to RNA Stat Lab 05/15/24 10:55 Received Lactic Acid Stat Lab 05/15/24 10:55 Completed Lipase Stat Lab 05/15/24 10:55 Completed PT INR [Prothrombin Time INR] Stat Lab 05/15/24 10:55 Completed PTT [Activated Partial Thrombo Time] Stat Lab 05/15/24 10:55 Completed Urinalysis and Microscopic Stat Lab 05/15/24 10:42 Completed Blood Culture Stat Micro 05/15/24 11:48 Received Venous Blood Gas Stat RT 05/15/24 11:18 Completed Medical Decision Narrative: 44-year-old female history of chronic diarrhea for 6 months recently diagnosed with E. coli presenting with abdominal pain and cramping. Patient states that she was recently diagnosed with E. coli, azithromycin was called into the pharmacy. Patient has been taking azithromycin. States that she is now having worsening cramping abdominal pain. No fevers or chills, vomiting, but she has been nauseated. Intermittently having blood in her stool, she states that this is normal for her, has not been worse than usual. History was obtained via conversation with patient. On arrival, patient hemodynamically stable, alert, oriented x4, appropriate, GCS 15, moving all extremities spontaneously, pupils equal and reactive to light. Full physical exam performed and significant for appears to be uncomfortable, but no obvious abnormalities on physical exam. Abdomen soft, nondistended, nontender on my exam. No flank tenderness. No overlying skin changes. No signs of peritonitis. Negative Rojas's and McBurney's point tenderness. Normotensive, nontachycardic. Differential includes PUD, gastritis, enteritis, gastroenteritis, pancreatitis, SBO, colitis, diverticulitis, nephrolithiasis, UTI, , cholecystitis, choledocholithiasis, appendicitis, hepatitis, torsion, aortic pathology, mesenteric ischemia among others. Patient placed on continuous cardiac monitoring and continuous pulse ox with initial blood pressure 125/80, heart rate 81, saturation 98% on room air. Patient was given Zofran and Toradol for symptomatic management and correction of underlying abnormalities. Workup independently interpreted and significant for nonactionable hematologic workup. VBG nonactionable, but bicarb is a little low at 20. Urinalysis without concern for UTI. On independent interpretation of imaging, no acute intra-abdominal pathology. Nonspecific gallbladder findings, no evidence of stone. See radiology read for full review of final results. On chart review, patient has enteropathogenic E. coli. Currently on azithromycin. Dr. Martin office contacted for further guidance on management. Recommended probiotic, outpatient management. Because patient at baseline without signs or symptoms of clinical decompensation, deemed appropriate for discharge. Results were relayed to patient who voiced understanding and were agreeable to outpatient management and follow up. I discussed my clinical impression with patient and answered all questions. At this time, the evidence for any other entities in the differential is insufficient to warrant any further testing or ED observation. This was explained as well. Advisory was given that persistent or worsening symptoms require further evaluation. I confirmed the understanding of this discussion. Manager Apple disclaimer Much of this encounter note is an electronic community pharmacist spoken language to printed text. Electronic community pharmacist of the spoken language may permit errors. Although I have reviewed the note, some errors may still exist. Critical Care Critical Care Time Critical Care Time: No
--- NOTE | 2024-05-15 11:16 | CT_ITS ---
FINAL REPORT TECHNIQUE: Postcontrast images of the abdomen and pelvis were performed by computed tomography. Extensive 3-D reconstruction images were performed. A CTA was performed. This study was performed with techniques to keep radiation doses as low as reasonably achievable (ALARA). Individualized dose reduction techniques using automated exposure control or adjustment of mA and/or kV according to the patient's size were employed. CLINICAL HISTORY: abd pain COMPARISON: CT abdomen and pelvis dated 11/02/2023 FINDINGS: ABDOMEN AND PELVIS: Cardiomegaly is present with significant left ventricular enlargement. There is mild nonspecific gallbladder wall thickening without definite gallstones identified. The appendix is normal in appearance. The uterus has been surgically resected. CTA: The abdominal aorta is proper caliber. The SMA, celiac axis, and LAUREANO are patent. There is no significant stenosis or calcification. The renal arteries are patent bilaterally. Note is made of 2 right renal arteries, with a single left renal artery. IMPRESSION: No evidence of significant abdominal or pelvic arterial stenosis. Cardiomegaly with significant left ventricular enlargement. Mild nonspecific gallbladder wall thickening without definite gallstones visualized. Reviewed, Interpreted and Dictated by Wisam Lee III, MD Transcribed by Lisa Vasquez Authenticated and [facility]
[2024-05-15 11:25] LABS: Basophils # 0.1 K/mm3 (0-0.2); Basophils % 1.2 % (0.1-2.0); Eosinophils # 0.1 K/mm3 (0.0-0.4); Eosinophils % 1.9 % (0.1-12.0); Hematocrit 42.9 % (37.0-47.0); Hemoglobin 14.3 g/dL (12.2-16.2); Lymphocytes # 2.3 K/mm3 (0.7-4.5); Lymphocytes % 31.1 % (10-50); Mean Corpuscular HGB Conc 33.4 g/dL (31.8-35.4); Mean Corpuscular Hemoglobin 33.5 pg (27.0-31.2); Mean Corpuscular Volume 100.4 fl (81-99); Mean Platelet Volume 7.5 fl (7.4-10.4); Monocytes # 0.5 K/mm3 (0.1-1.0); Neutrophils # 4.5 K/mm3 (1.8-7.8); Neutrophils % 59.8 % (37.0-80.0); Platelet Count 307 K/mm3 (142-424); Red Blood Count 4.27 M/mm3 (4.20-5.40); Red Cell Distribution Width 13.3 % (11.5-17.5); White Blood Count 7.5 K/mm3 (4.8-10.8)
[2024-05-15 11:26] LABS: Microscopic, Urine URINE MICROSCOPIC (MICROSCOPIC)
[2024-05-15] MEDS: ONDANSETRON 4MG/2ML VIAL 4 MG IV (11:26)
[2024-05-15] MEDS: ACETAMINOPHEN 500MG TAB 1000 MG PO (11:26)
[2024-05-15] MEDS: KETOROLAC 30MG/ML VIAL 15 MG IV (11:26)
[2024-05-15 11:27] LABS: Lactate Venous 1.3 mmol/L (0.4-2.0); VBG Base Excess -5.5 mmol/L (-2.4-2.3); VBG HCO3 20.1 mmol/L (23-30); VBG PH 7.35 mmol/L (7.31-7.41); VBG PO2 91.1 mmol/L (28-40); VBG Total CO2 21.2 mmol/L (23-27)
--- NOTE | 2024-05-15 11:27 | PC.NURSE ---
I rounded on the pt, no new complaints at this time. no needs voiced. call huggins in reach.
[2024-05-15 11:28] LABS: Appearance,Urine CLEAR (Clear); Bilirubin,Urine Negative (Negative); Blood, Urine TRACE-I (Negative); Color,Urine YELLOW (Yellow); Glucose,Urine (UA) Negative (Negative); Ketones,Urine Negative (Negative); Leukocyte Esterase,Urine Negative (Negative); Nitrate,Urine Negative (Negative); Protein,Urine Negative (Negative); Specific Gravity, Urine 1.025 (1.005-1.030); Urobilinogen,Urine 0.2 EU/dl (0.2)
[2024-05-15 11:32] LABS: Alanine Aminotransferase 15 U/L (12-78); Albumin Level 4.2 g/dl (3.5-5.0); Albumin/Globulin Ratio 1.8 (1.1-1.8); Alkaline Phosphatase 49 U/L (38-126); Anion Gap 10.1 mEq/L (5-15); Aspartate Amino Transferase 23 U/L (14-36); Bilirubin,Total 0.8 mg/dl (0.2-1.3); Blood Urea Nitrogen 9 mg/dl (7-17); Calcium 8.7 mg/dl (8.4-10.2); Carbon Dioxide 23 mmol/L (22.0-30.0); Chloride 110 mmol/L (98-107); Creatinine Clearance Estimated 166 mL/min (50-200); Estimated Glomerular Filt Rate 135 ml/min (>60); GFR (African American) 163 ML/MIN (>60); Globulin 2.3 g/dL (1.3-3.2); Glucose 84 mg/dl (74-100); Lipase 45 U/L (23-300); Potassium 4.1 mmoL/L (3.5-5.1); Sodium 139 mmol/L (136-145); Total Protein,Serum 6.5 g/dl (6.3-8.2)
[2024-05-15 11:34] LABS: Bacteria,Urine Trace /lpf; RBC,Urine Occasional #/hpf (0-3); Squamous Epithelial Cell,Urine Occasional #/hpf (0-5)
[2024-05-15 11:37] LABS: Activated Partial Thrombo Time 29.1 seconds (22.8-30.6); INR 0.94 (0.9-1.1); Prothrombin Time 10.6 seconds (10.1-12.5)
[2024-05-15 11:38] LABS: C-Reactive Protein 0.8 mg/L (0-4)
[2024-05-15] MEDS: SODIUM CHLORIDE 0.9% 10ML SYR (RAD ONLY) 10 ML IV (12:00)
[2024-05-15] MEDS: IOPAMIDOL-370 (76%);100ML BOTTLE 80 ML IV (12:00)
[2024-05-15] MEDS: 0.9 % SODIUM CHLORIDE 50 ML VIAL IV (12:00)
[2024-05-15 12:02] VITALS: BP 110/61; PULSE 66; TEMP 36.6; O2SAT 98
[2024-05-15 13:00] LABS: Erythrocyte Sedimentation Rate 8 mm/hr (0-20)
--- NOTE | 2024-05-15 13:05 | PC.NURSE ---
Rounded on patient, no concerns at this time.
[2024-05-15 13:45] LABS: HIV (1&2) Antibody Rapid NONREACTIVE (NONREACTIVE)
--- NOTE | 2024-05-15 14:01 | PC.NURSE ---
I rounded on the pt, she was pealing back the dressing on her IV and requested i discontinue it or she would. IV discontinued. I notified Dr. Funes the pt states she is ready to go. He is currently speaking with GI about her care.
--- NOTE | 2024-05-15 14:04 | PC.NURSE ---
o/p with Dr. Martin at this time.
--- NOTE | 2024-05-15 14:06 | PC.NURSE ---
DR DALY SPEAKING WITH DR VEGA
[2024-05-15 14:28] VITALS: BP 135/85; PULSE 70; RESP 13; TEMP 36.7
[2024-05-16 08:22] LABS: HCV Ab Non Reactive (Non Reactive)
== END 2024-05-15 14:29 | disposition home or self-care (01) ==
PROVIDERS: Emergency Provider Emergency Medicine; PCP Family Medicine
DX: R19.7 Diarrhea, unspecified (principal); R10.9 Unspecified abdominal pain; M79.10 Myalgia, unspecified site; R11.0 Nausea; K92.1 Melena
CPT/HCPCS: 74174; 80053; 81001; 82803; 83605; 83690; 85025; 85610; 85651; 85730; 86140; 86803; 87040; 87389; 96374; 96375; 99285; J1885; J2405; Q9967

== ENCOUNTER 2025-04-16 15:56 | Outpatient (CLI) | payer BC, SELFPAY ==
--- OUTSIDE RECORDS SUMMARY | 2024-09-16 09:45 | XMS_ITS ---
Author Organization [facility] Address [address] [place] [id number] Care Team Providers Care Early Childhood Assistant Name Role Phone Peewee Reina Primary Care Provider Manuel Clarke Unavailable [phone] Allergies No Known Allergies Results Component Value Reference Range Notes P-Culture, Wound Aerobic w/G stoney Stain Reviewed date:09/27/2024 04:23:38 PM Interpretation:No growth Performing Lab: Notes/Report: Test performed by [facility], [address] , [address], [place] [address] El Oreilly MD, Branch Library Clerk CLIA: [id number] Specimen Source Breast Gram Stain See Below [...] 09/16/2024 Encounters Encounter Location Date Provider Diagnosis [facility] [address] [place] [id number] 09/16/2024 Clarke Jackson Infection of breast, left [...] repo rt test results, Reason: Provider Name:Elaina serra, 04/21/2025 03:45:00 PM, [address], [address], [place], [id number], Progress Notes * HARPAL RICHYDOB: 1 (45 yo F)Acc No.[id number]:09/16/2024 Progress Notes Patient: RICHY WALKER Provider: Edy Jackson M.D. :1980 A ge:44 Y S ex:Female Date:09/16/2024 Address:[address] [place] [address] [id number] Pcp:Peewee Reina Subjective: * [...] placental abruption 2001, Partial Hysterectomy 2017, Colonoscopy, [facility] 12/2021. * Hospitalization/Major Diagno stic Procedure: D [...] * Images: Billing Information: * Visit Code: 80157 Office Visit, Est Pt., Level 3. * Procedure Codes: 3074F SYST BP LT 130 MM HG. 3078F DIAST BP < 80 MM HG. * Electronic signature of Mercedes Jakcson MD on 04/16/2025 at 03:58 PM EDT Sign off status: Pending * Provider: Edy Jackson M.D. Date: 0 09/16/2024 Generated for Adalgisa hernández/Agnieszka/Laura on: 1 03:58 PM EDT History and Physical Notes * HPI (History [...]
--- OUTSIDE RECORDS SUMMARY | 2025-02-15 06:30 | XMS_ITS ---
Author Organization [facility] Address [address] [place] [id number] Care Team Providers Care Communication Lecturer Name Role Phone Peewee Reina Primary Care Provider [phone] Clarke Jackson Unavailable [phone] Allergies No Known Allergies Results Component Value Reference Range Notes P-Basic Metabolic Panel (BMP ) Reviewed date:02/18/2025 10:48:46 AM Interpretation:Normal Performing Lab: Notes/Report: CLIA: [id number] El Oreilly MD, Business Continuity Strategy Director [address] [place] [address] , [place] [address] Test performed by [employer] Sodium 140 135-145 mmol/L Potassium 4.3 3.5-5.3 mmol/L Chloride 109 97-108 mmol/L CO2 23 20-32 mmol/L Glucose 90 65-99 mg/dL BUN 11 6-20 mg/dL Creatinine 0.54 0.50-1.00 mg/dL Calcium 9.0 8.6-10.4 mg/dL eGFR by Creatinine 116 >59 mL/min/1.73m2 P-Lipid Panel Reviewed date:02/18/2025 10:48:46 AM Interpretation:Normal Performing Lab: Notes/Report: Test performed by [employer] [address] [place] [address] [place] [address] El Oreilly MD, Business Continuity Strategy Director CLIA: [id number] Cholesterol 146 <200 mg/dL Triglycerides 44 <150 [...] 02/15/2025 Encounters Encounter Location Date Provider Diagnosis [facility] [address] [place] [id number] 02/15/2025 Clarkerodrigo Jackson Well adult exam Z00. 00 and BMI 25.0-25.9,adult Z68.25 Assessments Encounter Date Diagnosis (ICD Code) Assessment Notes Treatment Notes Treatment Clinical Notes Section Notes 02/15/2025 Well adult exam (ICD-10 - Z00.00) 02/15/2025 BMI 25.0-25.9,adult (ICD-10 - Z68.25) Plan Of Treatment Next Appt Details Follow Up: prn, Reason: Provider Name:Elaina serra, 04/21/2025 03:45:00 PM, [address], [address], [place], [phone], Progress Notes * RICHY ROWANDOB: 1 (45 yo F)Acc No.[id number]:02/15/2025 Physical Patient: RICHY WALKER Provider: Edy Jackson M.D. :1980 A ge:44 Y S ex:Female Date:02/15/2025 Address:[address] [place] [address] [id number] Pcp:Peewee Reina Subjective: * Chief [...] placental abruption 2001, [facility] 2017[facility] * Hospitalization/Major Diagno stic Procedure: [...] leg edema. Assessment: * Assessment: 1. W [facility] adult exam - Z00.00 (Primary) 2 . B MD 25.0-25.9,adult - Z68.25? Plan: * Treatment: Value [...] * Images: Billing Information: * Visit Code: 34054 Preventive Care Est Pt Age 40-64. * Procedure Codes: 11252 VENIPUNCT, ROUTINE*. 3074F SYST BP LT 130 MM HG. 3078F DIAST BP < 80 MM HG. * Electronic signature of Mercedes Jackson MD on 04/16/2025 at 03:58 PM EDT Sign off status: Pending * Provider: Edy Jackson M.D. Date: 0 02/15/2025 Generated for Adalgisa hernández/Agnieszka/Laura on: 1 03:58 [...]
--- OUTSIDE RECORDS SUMMARY | 2025-02-24 07:18 | XMS_ITS ---
Author Organization [facility] Address [address] [facility] [address] [facility] [address] [place] [id number] Care Team Providers Care Accounts Receivable Associate Name Role Phone Peewee Reina Primary Care Provider [phone] REASON FOR VISIT due [facility] 03/14/25 Encounters Encounter Location Date Provider Diagnosis [facility] [address] [facility] [address] [facility] [address] [place] [id number] 02/24/2025 Peewee Reina Breast cancer screening Z12.31 Assessments Encounter Date Diagnosis (ICD Code) Assessment Notes Treatment Notes Treatment Clinical Notes Section Notes 02/24/2025 Breast cancer screening (ICD-10 - Z12.31) Plan Of Treatment Pending Test Test Name Order Date Mammogram 02/24/2025 Next Appt Details Provider Name:Elaina serra, 04/21/2025 03:45:00 PM, [address] [facility] [address] [facility], [address], [place], [phone], Progress Notes * RICHY ROWANDOB: 1 (45 yo F)Acc No.[id number]:02/24/2025 Patient: RICHY WALKER :1980 A ge:45 Y S ex:Female Address:[address] [place] [address] [place], [address] Subjective: * Chief Complaints: * D ue bhavna 03/14/25 * Medical History: * Surgical History: * Hospitalization/Major Diagno stic Procedure: * Medications: Objective: * Vitals: * Physical Examination: Assessment: * Assessment: 1. B reast cancer screening - Z12.31 (Primary) Plan: * Treatment: * Procedure Codes: * true * Date: Generated for Adalgisa hernández/Agnieszka/Laura on: 03:58 PM EDT
--- OUTSIDE RECORDS SUMMARY | 2025-04-15 07:15 | XMS_ITS ---
Author Organization [facility] Address [address] [place] [id number] Care Team Providers Care Senior Supplier Quality Engineer Name Role Phone Peewee Reina Primary Care Provider Elaina Card Unavailable [phone] Allergies No Known Allergies Results Component Value Reference Range Notes P-Comprehensive Metabolic Pa kecia (CMP) (Not yet reviewed by provider) Interpretation:Normal Performing Lab: Notes/Report: Test performed by [facility] , [address], [place] [address] El Oreilly MD, Medical Officer Psychiatry CLIA: [id number] Sodium 140 135-145 mmol/L Potassium 4.2 3.5-5.3 [...] <0.2-1.2 mg/dL A/G Ratio 2.1 1.1-2.5 P-TSH (Not yet reviewed by braxton peacock) Interpretation:1.60 Performing Lab: Notes/Report: Test performed by [facility] [address] [place] [address] , [address], [place] [address] El Oreilly MD, Medical Officer Psychiatry CLIA: [id number] TSH 1.60 0.43-5.25 mU/L CBC Venipuncture (in house) Reviewed date:04/15/2025 01:21:54 [...] - 38 platlet 302 100 - 400 Reason For Referral Diagnosis 1 Abdominal pain (R10. 9) Referral Organization [facility] Referring Provider First Name Elaina Referring Provider Last Name Kyaw Referring Provider Speciality Family [facility] General Notes Has seen [facility] in t he past; has restarted diarrhea; weight loss as well; some blood in her stool, Rosemarie Matias 04/15/2025 12:59:20 PM > faxed to [facility] Referral Priority Routine REASON FOR VISIT [...] Status Risk Notes Problem Gastroesophageal reflux disease (907736814) GERD (gastroeso phageal reflux disease) (K21.9) Active confirmed Vital Signs Blood pressure systolic 130 mm Hg 04/15/20 25 Blood pressure diastolic 78 mm Hg 025 Heart Rate 74 /min 04/15/2025 Height 62 in 04/15/2025 Weight 134.2 lbs 04/15/2025 BMI 24.54 kg/m2 04/15/2025 Encounters Encounter Location Date Provider Diagnosis [facility] [address] [place], [place] [id number] 04/15/2025 Elaina Card Abdominal pain R10.9 ; [...] Test Test Name Order Date Diarrhea Panel ([facility]) 04/15/2025 P-Comprehensive Metabolic Panel (CMP) P-TSH 04/15/2025 Referrals Referral Date Details 04/15/2025 04/15/2025 Next Appt Details Follow Up: 1 Week, Reason: Provider Name:Elaina serra, 04/21/2025 03:45:00 PM, [address], [address], [place], [id number], Progress Notes * DEBBY ROWAN: 1 (45 yo F)Acc No.[id number]:04/15/2025 Progress Notes Patient: RICHY WALKER Provider: CHYNA Lacy :1980 A ge:45 Y S ex:Female Date:04/15/2025 Address:[address] [place] [address] [id number] Pcp:Peewee Reina Subjective: * Chief Complaints: * [...] pt states she ate Monday and the [employer] in [place] over the weekend. Pt states she ate a Scalf burber and has been feeling sick to [...] placental abruption 2001, Partial Hysterectomy 2017, Colonoscopy, [facility] 12/2021. * Family History: F ather: , [...] GFR by Creatinine 111 >59 - mL/min/1.73m2 ?LAB: P-TSH (Collection Date & Time - 04/15/2025 11:37 AM)?1.60* Value Reference Range T SH 1.60 0.43-5.25 - mU/L ?LAB: CBC Venipuncture (in house) (Collection Date [...] Codes: 8 5025 CBC WITH AUTO DIFF, 45451 VENIPUNCT, ROUTINE* * Follow Up: 1 Week * Images: Billing Information: * Visit Code: 31430 Office Visit, Est Pt., Level 4. * Procedure Codes: 77863 CBC WITH AUTO DIFF. 22050 VENIPUNCT, ROUTINE*. * Electronic signature of Amalia Card APRN on 04/16/2025 at 03:58 PM EDT Sign off status: Pending * Provider: CHYNA Lacy Date: Generated for Adalgisa hernández/Agnieszka/Laura on: 03:58 PM EDT History and Physical Notes * HPI (History of Present Illness) Category Sub-Category Detail Notes Category Not es Gastroenterology Fever Vomiting Abdominal Pain lower abdomen off an d on for a couple months Diarrhea mixed with blood. Th e pt states she ate Monday and the [employer] in [place] over the weekend. Pt states she ate a Scalf burber and has been feeling sick to [...]
--- NOTE | 2025-04-16 15:58 | MM_ITS ---
PROCEDURE INFORMATION: Exam: MG Bilateral Screening 3D Mammography Exam date and time: 04/16/2025 4:02 PM Age: 45 years old Clinical indication: Screening examination TECHNIQUE: Imaging protocol: Bilateral Screening tomosynthesis and 2D mammography including computer-aided detection (CAD) when performed. COMPARISON: 1. MG MM DIG SCREENING MAMM BI W/CAD 03/14/2024 3:22 PM 2. US BREAST RT COMPLETE 03/28/2024 3:21 PM FINDINGS: MAMMOGRAPHY: Breast composition: The breasts are heterogeneously dense, which may obscure small masses. Mass: None. Architectural distortion: None. Calcifications: No suspicious calcifications. Asymmetric density: None. Skin thickening: None. Axillary adenopathy: None. IMPRESSION: No mammographic evidence of malignancy. Annual screening is recommended unless otherwise clinically indicated. ASSESSMENT: BI-RADS Category 1: Negative.
--- OUTSIDE RECORDS SUMMARY | 2025-04-16 15:59 | XMS_ITS | Patient Health Record ---
Author Organization [facility] Address [address] [place] [id number] Care Team Providers Care Clerk Guide Name Role Phone Peewee Reina Primary Care Provider Clarke Jackson Unavailable [phone] Elania Card Unavailable [phone] Allergies No Known Allergies Results Component Value Reference Range Notes P-Culture, Wound Aerobic w/G stoney Stain Reviewed date:09/27/2024 04:23:38 PM Interpretation:No growth Performing Lab: Notes/Report: Test performed by [facility] [address] [place], [place] [address] , [address], [place] [id number] El Oreilly MD, Roll Cutter CLIA: [id number] Specimen Source Breast Gram Stain See Below Many Polymorphonuclear leukocytes Many Mixed Gram Positive Organisms Culture, Wound Aerobic w/Gram Stain See Below Preliminary Report : No growth, reincubate Final Report : No growth P-Basic Metabolic Panel (BMP ) Reviewed date:02/18/2025 10:48:46 AM Interpretation:Normal Performing Lab: Notes/Report: Test performed by [facility] [address] [place], [place] [address] Brandie Jay, [facility] [address], [place] [address] El Oreilly MD, Roll Cutter CLIA: [id number] Sodium 140 135-145 mmol/L Potassium 4.3 3.5-5.3 mmol/L Chloride 109 97-108 mmol/L CO2 23 20-32 mmol/L Glucose 90 65-99 mg/dL BUN 11 6-20 mg/dL Creatinine 0.54 0.50-1.00 mg/dL Calcium 9.0 8.6-10.4 mg/dL eGFR by Creatinine 116 >59 mL/min/1.73m2 P-Lipid Panel Reviewed date:02/18/2025 10:48:46 AM Interpretation:Normal Performing Lab: Notes/Report: Test performed by [facility], [address] , [address], [place] [address] El Oreilly MD, Roll Cutter CLIA: [id number] Cholesterol 146 <200 mg/dL Triglycerides 44 <150 [...] Results: 76 Units: mg/dL % Change: - P-Comprehensive Metabolic Pa kecia (CMP) (Not yet reviewed by provider) Interpretation:Normal Performing Lab: Notes/Report: Test performed by [facility] [address] [place] [address] , [address], [place] [address] El Oreilly MD, Roll Cutter CLIA: [id number] Sodium 140 135-145 mmol/L Potassium 4.2 3.5-5.3 [...] 1.1-2.5 P-TSH (Not yet reviewed by braxton peaccok) Interpretation:1.60 Performing Lab: Notes/Report: Test performed by [facility] [address] [place] [address] , [address], [place] [address] El Oreilly MD, Roll Cutter CLIA: [id number] TSH 1.60 0.43-5.25 mU/L CBC Venipuncture (in [...] Family Pra ctice General Notes Has seen [facility] in t he past; has restarted diarrhea; weight loss as well; some blood in her stool, Rosemarie Matias 04/15/2025 12:59:20 PM > faxed to [facility] Referral Priority Routine Medications Medication SIG (Take, Route, Frequency, Duration) [...] date - stop date) Heavy tobacco saray MICHAEL CURRENT TOBACCO USE: Question Answer Notes Are you a: heavy tobacco smoker 1ppd Problems Problem Type SNOMED Code ICD Code Onset Dates Problem Status W/U Status Risk Notes Problem Gastroesophageal reflux disease (095577622) GERD (gastroesophag eal reflux disease) (K21.9) Active confirmed Problem Abnormal mammogram (943208235) Abnormal mammogram (R92.8) Active confirmed Problem Obese class I (663493503161772) BMI 33.0-33.9,adul t (Z68.33) Active confirmed Problem Irritable bowel syndrome with diarrhea (459354376) Irritable bowel syndrome with diarrhea (K58.0) Active confirmed Problem Headache (37558521) Periodic headache syndrome, not intractable (G43.C0) Active confirmed Problem Migraine with aura (1599840) Migraine with aura and without status migrainosus, not intractable (G43.109) Active confirmed Problem Bipolar disorder (62288213) Bipolar disorder with depression (F31.9) Active confirmed Vital Signs Heart Rate 74 /min 04/15/2025 Blood pressure diastolic 78 mm Hg 04/15/2025 Height 62 in 04/15/2025 Blood pressure systolic 130 mm Hg 04/15/2025 Weight 134.2 lbs 04/15/2025 BMI 24.54 kg/m2 04/15/2025 Encounters Encounter Location Date Provider Diagnosis [facility] [address] [place], [place] [id number] 09/16/2024 [facility] [place] Infection of breast, left N61.0 [facility] [address] [facility] [address] [place] [id number] 02/15/2025 Clarke [place] Well adult exam Z00.00 and BMI 25.0-25.9,adult Z68.25 [facility] [address] [facility] [address] [place] [id number] 04/15/2025 Elaina Card Abdominal pain R10.9 ; Acute diarrhea R19.7 ; GERD (gastroesophageal reflux disease) K21.9 and Nausea R11.0 [facility] [address] [facility] [address] [place] [id number] 02/24/2025 Peewee Reina Breast cancer screening Z12.31 Assessments Encounter Date Diagnosis (ICD Code) Assessment Notes Treatment Notes Treatment Clinical Notes Section Notes 09/16/2024 Infection of breast, left (ICD-10 - N61.0) 02/15/2025 Well adult exam (ICD-10 - Z00.00) 02/15/2025 BMI 25.0-25.9,adul t (ICD-10 - Z68.25) 02/24/2025 Breast cancer screening (ICD-10 - Z12.31) 04/15/2025 Abdominal pain (ICD-10 - R10.9) 04/15/2025 Acute diarrhea (ICD-10 - R19.7) bland diet; no carbonation; good water intake; small amounts frequently 04/15/2025 GERD (gastroesophag eal reflux disease) (ICD-10 - K21.9) 04/15/2025 Nausea (ICD-10 - R11.0) Plan Of Treatment Pending Test Test Name Order Date Mammogram 02/24/2025 Diarrhea Panel ([facility]) 04/15/2025 P-Comprehensive Metabolic Panel (CMP) P-TSH 04/15/2025 Next Appt Details Provider Name:Elaina serra, 04/21/2025 03:45:00 PM, [address] [facility], [address], [place], [place], [id number], Insurance Providers Payer Name Payer Address Payer Phone Subscriber Number Group Number Insured Name Patient Relationship to Insured Coverage Start Date Coverage End Date [facility] [address] [place] [address] [id number] RICHY ROWAN Self - patient is the insured Medical (General) History Medical History History ICD Code Type 2A - blood clot disorder ([employer]) Surgical History Surgery Date(Month/Year) , placental abruption 2009 2002 , placental abruption 2001 Partial Hysterectomy 2017 [facility] 12/2021 Hospitalization History Reason Date(Month/Year)
== END 2025-04-16 23:59 | disposition home or self-care (01) ==
LOC: RAD 15:56
PROVIDERS: PCP Family Medicine; Visit Provider Family Medicine
DX: Z12.31 Encounter for screening mammogram for malignant neoplasm of breast (principal); R92.333 Mammographic heterogeneous density, bilateral breasts
CPT/HCPCS: 77063; 77067

== ENCOUNTER 2025-05-28 08:18 | Emergency (ER) | payer BC, SELFPAY ==
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
--- OUTSIDE RECORDS SUMMARY | 2024-03-07 11:00 | XMS_ITS ---
Author Organization [facility] Address [address] [place] [id number] Care Team Providers Care Nurse Practitioner Physician Assistant Name Role Phone Peewee Reina Primary Care Provider [phone] Claudine Chávez Unavailable [phone] Results Component Value Reference Range Notes Mammogram Reviewed date:03/25/2024 12:32:38 PM Interpretation:needs additional imaging Performing Lab: Notes/Report: needs additional imaging Reason For Referral Diagnosis 1 Epigastric abdominal pain (R10.13) Referral [facility] Referring Provider First Name Claudine Referring Provider Last Name Kyler Referring Provider Speciality Physician Sql Ssrs Ssis Developer Referred Provider Gastroenterology, . Referred Provider Specialty Gastroentero logy General Notes Claudine Chávez 2023 4:35:16 PM > Pt needs an appt with Dr. Martin. Please send labs done at [facility] and imaging., Rosemarie Matias 03/08/2024 10:12:21 AM > 04/24/2024 at 01:00pm; faxed notes to [facility] Referral Priority Routine REASON FOR VISIT Wellness physical for work 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 Tobacco Use: 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 Observation Description Date Details (start date - stop date) Heavy tobacco saray campo NA - NA CURRENT TOBACCO USE: Question Answer Notes Are you a: heavy tobacco smoker 1ppd Vital Signs Blood pressure systolic 120 mm Hg 03/07/20 24 Blood pressure diastolic 60 mm Hg 024 Heart Rate 73 /min 03/07/2024 Height 62 in 03/07/2024 Weight 170.2 lbs 03/07/2024 BMI 31.13 kg/m2 03/07/2024 Encounters Encounter Location Date Provider Diagnosis [facility] [address] [place] [id number] 03/07/2024 Claudine Chávez Epigastric abdominal pain R10.13 ; Routine physical examination Z00.00 ; Nausea and vomiting, unspecified vomiting type R11.2 and Screening mammogram, encounter for Z12.31 Assessments Encounter Date Diagnosis (ICD Code) Assessment Notes Treatment Notes Treatment Clinical Notes Section Notes 03/07/2024 Epigastric abdominal pain (ICD-10 - R10.13) Patient states she never heard about her GI appt. Will make a new referral to Dr. Martin as she is still having pain, nausea, and vomiting off and on. 03/07/2024 Routine physical examination (ICD-10 - Z00.00) Patient is going to call the OBGYN to see if she needs a PAP. 03/07/2024 Nausea and vomiting, unspecified vomiting type (ICD-10 - R11.2) Has zofran at home. 03/07/2024 Screening mammogram, encounter for (ICD-10 - Z12.31) 03/07/2024 Other Plan Of Treatment Treatment Notes Assessment Notes Epigastric abdominal pain Patient states she never heard about her GI appt. Will make a new referral to Dr. Martin as she is still having pain, nausea, and vomiting off and on. Routine physical examination Patient is going to call the OBGYN to see if she needs a PAP. Nausea and vomiting, unspeci fied vomiting type Has zofran at home. Referrals Referral Date Details 03/07/2024 03/07/2024, . Gastro enterology Next Appt Details Follow Up: via phone to repo rt test results, Reason: Provider Name:Elaina Lou serra, 07/22/2025 04:15:00 PM, [address], [address], [place], [id number], Progress Notes * RICHY ROWANDOB: 1 (45 yo F)Acc No.[id number]:03/07/2024 Physical Patient: RICHY WALKER Provider: STANFORD Mcleod :1980 A ge:44 Y S ex:Female Date:03/07/2024 Address:[address] [id number] Pcp:Peewee Reina Subjective: * Chief Complaints: * 1 . Wellness physical for work. * HPI: H PI: Patient is here today for c omplete physical. Pt sts she has also never had a mammogram and would like to get one scheduled. * ROS: D ERMATOLOGY: no R nancy. n o H zana. G ASTROENTEROLOGY: no N ausea. n o V omiting. n o D iarrhea.? U ROLOGY: no D ifficulty urinating. n o B lood in urine. * Medical History: T ype 2A - blood clot disorder (Von Willebrand's). * Surgical History: c -section, placental abruption 2009, 2002, , placental abruption 2001, [facility] Hyste[facility] 2017, [facility] * Hospitalization/Major Diagno stic Procedure: s ee above . * Family History: F ather: , diagnosed with Diabetes, Hypertension. M other: alive, diagnosed with Hypertension. 1 brother(s) , 1 sister(s) - healthy. 1 son(s) , 2 daughter(s) - healthy. . * 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: C URRENT TOBACCO USE: Yes A re you a: h eavy tobacco smoker 1ppd. C affeine: yes, frequency:. Exercise: no. Marital Status: , got October 2021!. Recreational drug use: no. Tobacco use other than smoking: no. Alcohol: No. Sexually active: yes. * Medications: D iscontinued Metoclopramide HCl 10 MG Tablet 1 tablet before meals Orally every six hours as needed , Discontinued predniSONE 20 MG Tablet 2 tablet Orally Once a day , Discontinued Excedrin Migraine 250-250-65 MG Tablet 2 tab(s) orally every 6 hours , Discontinued Ondansetron 4 MG Tablet Disintegrating 1 tablet on the tongue and allow to dissolve Orally three times a day as needed , Medication List reviewed and reconciled with the patient Objective: * Vitals: W t:170.2, Temp:98.8, BP:120/60, HR:73, Nurse:MM, Ht: 62, BMI:31.13. * Examination: G eneral Examination: General Appearance: N AD. H EENT: u nremarkable.?Oral cavity: n o lesions, mucosa moist and WNL, no erythema. N luci: s upple, no lymphadenopathy. C hest: n ormal shape and expansion. H eart: R SR. L ungs: c lear to auscultation. A bdomen: bowel sounds present, soft and nontender, no organomegaly or masses, no guarding or rigidity. N eurologic Exam: I ntact, gait normal. S kin: n ormal, no rash. P eripheral pulses: n ormal (2+) bilaterally. E xtremities: n o leg edema. Assessment: * Assessment: 1. R outine physical examination - Z00.00 (Primary) 2 . E pigastric abdominal pain - R10.13 3 . N ausea and vomiting, unspecified vomiting type - R11.2? 4. S creening mammogram, encounter for - Z12.31 Plan: * Treatment: 2. E pigastric abdominal pain Notes: Patient states she never heard about her GI appt. Will make a new referral to Dr. Martin as she is still having pain, nausea, and vomiting off and on. ? Referral To:. Gastroenterology Gastroenterology Reason: 3. N ausea and vomiting, unspecified vomiting type Notes: Has zofran at home. 4. S creening mammogram, encounter for Morgan joiner: Mammogram (Performed Date - 03/14/2024) n eeds additional imaging * Follow Up: v ia phone to report test results * Images: Billing Information: * Visit Code: 34203 Preventive Care Est Pt Age 40-64. * Procedure Codes: * Electronic signature of STANFORD Casillas on 05/28/2025 at 08:28 AM EST Sign off status: Pending * Provider: STANFORD Mcleod Date: 0 03/07/2024 Generated for Printi ng/Agnieszka/eTransmitting on: 1 07/28/2024 08:28 AM EST History and Physical Notes * HPI (History of Present Illness) Category Sub-Category Detail Notes Category Not es HPI Patient is here today for comple te physical. Pt sts she has also never had a mammogram and would like to get one scheduled Examination Category Sub-Category Detail Notes Category Not es General Examination HEENT: unremarkable Heart: RSR Lungs: clear to auscultatio n Abdomen: bowel sounds present , soft and nontender, no organomegaly or masses, no guarding or rigidity Extremities: no leg edema General Appearance: NAD Skin: normal, no rash Neurologic Exam: Intact, gait normal Neck: supple, no lymphaden opathy Oral cavity: no lesions, mucosa m oist and WNL, no erythema Peripheral pulses: normal (2+) bilatera lly Chest: normal shape and exp ansion Consultation Request Notes Referral Date Referring Provider Referred Provider Not es 03/07/2024 Claudine Chávez Gastroenterology, .
--- OUTSIDE RECORDS SUMMARY | 2024-09-16 08:45 | XMS_ITS ---
Author Organization [facility] Address [address] [place] [id number] Care Team Providers Care Cell Manager Name Role Phone Peewee Reina Primary Care Provider Manuel Clarke Unavailable [phone] Allergies No Known Allergies Results Component Value Reference Range Notes P-Culture, Wound Aerobic w/G stoney Stain Reviewed date:09/27/2024 04:23:38 PM Interpretation:No growth Performing Lab: Notes/Report: Test performed by [facility], [address] , [address], [place] [address] El Oreilly MD, Real Estate Subagent CLIA: [id number] Specimen Source Breast Gram Stain See Below Many Polymorphonuclear leukocytes Many Mixed Gram Positive Organisms Culture, Wound Aerobic w/Gram Stain See Below Preliminary Report : No growth, reincubate Final Report : No growth REASON FOR VISIT sore on chest is oozing Medications Medication SIG (Take, Route, Fr equency, Duration) Notes Start Date End Date Status Cephalexin 500 MG 1 capsule Orally Two times a day; Duration: 7 days 09/16/2024 Active 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 Tobacco Use: 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 Observation Description Date Details (start date - stop date) Heavy tobacco saray campo NA - NA CURRENT TOBACCO USE: Question Answer Notes Are you a: heavy tobacco smoker 1ppd Vital Signs Blood pressure systolic 128 mm Hg 09/17/19 25 Blood pressure diastolic 70 mm Hg 025 Heart Rate 64 /min 09/16/2024 Height 62 in 09/16/2024 Weight 169.7 lbs 09/16/2024 BMI 31.04 kg/m2 09/16/2024 Encounters Encounter Location Date Provider Diagnosis [facility] [address] [place] [id number] 09/16/2024 Clarke Jackson Infection of breast, left N61.0 Assessments Encounter Date Diagnosis (ICD Code) Assessment Notes Treatment Notes Treatment Clinical Notes Section Notes 09/16/2024 Infection of breast, left (ICD-10 - N61.0) Plan Of Treatment Medication Medication Name Sig Start Date Stop Date Notes Cephalexin 500 MG 1 capsule Orally Two times a day; Duration: 7 days 09/16/2024 Next Appt Details Follow Up: via phone to repo rt test results, Reason: Provider Name:Elaina serar, 07/22/2025 04:15:00 PM, [address], [address], [place], [id number], Progress Notes * HARPAL RICHYDOB: [birth year] (45 yo F)Acc No.[id number]:09/16/2024 Progress Notes Patient: RICHY WALKER Provider: Edy Jackson M.D. :1980 A ge:44 Y S ex:Female Date:09/16/2024 Address:[address] [place] [address] [id number] Pcp:Peewee Reina Subjective: * Chief Complaints: * 1 . Sore on chest is oozing. * HPI: D ermatology: 44 year old female presents with c/o knot P t sts she woke up yesterday morning with her left breast very painful and and noticed a large knot. Pt sts she put a warm rag on the knot and sts green smelly liquid started to come out of it. 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 Pt sts it is nasty and very painful. Pt sts her chest started today as well . * ROS: C ARDIOLOGY: no D izziness. n o C hest pain. G ASTROENTEROLOGY: no N ausea. n o V omiting. U ROLOGY: no D ifficulty urinating. n o B lood in urine. * Medical History: T ype 2A - blood clot disorder (Von Willebrand's). * Surgical History: c -section, placental abruption 2009, 2002, , placental abruption 2001, Partial Hysterectomy 2017, Colonoscopy, [facility] 12/2021. * Hospitalization/Major Diagno stic Procedure: D enies Past Hospitalization. * Family History: F ather: , diagnosed [...] Alcohol: No. Sexually active: yes. * Medications: N one * Allergies: N .K.D.A. Objective: * Vitals: W t:169.7, Temp:98.2, BP:128/70, HR:64, Nurse:agustin, Ht: 62, BMI:31.04. * Examination: G eneral Examination: General Appearance: N AD. S kin: l eft breast is slightly swollen distally, left nipple is larger than the right, minimal purulent drainage from previous piercing site of nipple. Assessment: * Assessment: 1. I nfection of breast, left - N61.0 (Primary) Plan: * Treatment: Value Reference Range C ulture, Wound Aerobic w/Gram Stain See Below - * S pecimen Source Breast - * G stoney Stain See Below - * Zulema Amin 09/19/2024 4:23:18 PM > Pt informed * Procedure Codes: 3 074F SYST BP LT 130 MM HG, 3078F DIAST BP < 80 MM HG * Follow Up: v ia phone to report test results * Images: Billing Information: * Visit Code: 80320 Office Visit, Est Pt., Level 3. * Procedure Codes: 3074F SYST BP LT 130 MM HG. 3078F DIAST BP < 80 MM HG. * Electronic signature of eMrcedes Jackson MD on 05/28/2025 at 08:28 AM EST Sign off status: Pending * Provider: Edy Jackson M.D. Date: 0 09/16/2024 Generated for Adalgisa hernández/Agnisezka/Laura on: 1 07/28/2024 08:28 AM EST History and Physical Notes * HPI (History of Present Illness) Category Sub-Category Detail Notes Category Not es Dermatology knot Pt sts she woke up yesterday morning with her left breast very painful and and noticed a large knot. Pt sts she put a warm rag on the knot and sts green smelly liquid started to come out of it. 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 Pt sts it is nasty and very painful. Pt sts her chest started today as well Examination Category Sub-Category Detail Notes Category Not es General Examination General Appearance: NAD Skin: left breast is sligh tly swollen distally, left nipple is larger than the right, minimal purulent drainage from previous piercing site of nipple
--- OUTSIDE RECORDS SUMMARY | 2025-02-15 05:30 | XMS_ITS ---
Author Organization [facility] Address [address] [place] [id number] Care Team Providers Care Dip Guider Stoves Name Role Phone Peewee Reina Primary Care Provider Clarke Jackson Unavailable [phone] Allergies No Known Allergies Results Component Value Reference Range Notes P-Basic Metabolic Panel (BMP ) Reviewed date:02/18/2025 10:48:46 AM Interpretation:Normal Performing Lab: Notes/Report: Test performed by [employer] [address] [place], [place] [address] [place] [address] [place] [address] El Oreilly MD, Pattern Chain Maker Supervisor CLIA: [id number] Sodium 140 135-145 mmol/L Potassium 4.3 3.5-5.3 mmol/L Chloride 109 97-108 mmol/L CO2 23 20-32 mmol/L Glucose 90 65-99 mg/dL BUN 11 6-20 mg/dL Creatinine 0.54 0.50-1.00 mg/dL Calcium 9.0 8.6-10.4 mg/dL eGFR by Creatinine 116 >59 mL/min/1.73m2 P-Lipid Panel Reviewed date:02/18/2025 10:48:46 AM Interpretation:Normal Performing Lab: Notes/Report: Test performed by [employer] [address] [place], [place] [address] [address], [place] [address] El Oreilly MD, Pattern Chain Maker Supervisor CLIA: [id number] Cholesterol 146 <200 mg/dL Triglycerides 44 <150 mg/dL HDL Cholesterol 61 >39 mg/dL Cholesterol / HDL Ratio 2.39 0.00-4.44 Ratio Non-HDL Cholesterol 85 <130 mg/dL LDL Cholesterol (Calculation) 76 <130 mg/dL LDL Cholesterol Levels* Less than 100 mg/dL Optimal 100 to 129 mg/dL Near Optimal/ Above Optimal 130 to 159 mg/dL Borderline High 160 to 189 mg/dL High 190 mg/dL and above Very High * Categories as recommended by the 2004 ATPIII guidelines LDL/HDL Ratio 1.2 <3.3 Ratio LDL Cholesterol Patient History Test Date: 02/15/2025 LDL Results: 76 Units: mg/dL % Change: - REASON FOR VISIT 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 00 and BMI 25.0-25.9,adult Z68.25 Assessments Encounter Date Diagnosis (ICD Code) Assessment Notes Treatment Notes Treatment Clinical Notes Section Notes 02/15/2025 Well adult exam (ICD-10 - Z00.00) 02/15/2025 BMI 25.0-25.9,adult (ICD-10 - Z68.25) Plan Of Treatment Next Appt Details Follow Up: prn, Reason: Provider Name:Elaina wolfetrina, 07/22/2025 04:15:00 PM, [address], [address], [place], [id number], Progress Notes * RICHY ROWANDOB: 1 (45 yo F)Acc No.[id number]:02/15/2025 Physical Patient: RICHY WALKER Provider: Edy Jackson M.D. :1980 A ge:44 Y S ex:Female Date:02/15/2025 Address:[address] [place] [address] [id number] Pcp:Peewee Reina Subjective: * Chief Complaints: * 1 . PHYSICAL FOR WORK. * HPI: H PI: 44 year old female presents with c/o Patient is here today for?complete physical. Pt states she is doing good and denies any new concerns. Pt is not fasting.? * ROS: D ERMATOLOGY: no R nancy. n o H zana. G ASTROENTEROLOGY: no N ausea. n o V omiting. U ROLOGY: no D ifficulty urinating. n o B lood in urine. * Medical History: T ype 2A - blood clot disorder (Von Willebrand's). * Surgical History: c -section, placental abruption 2009, 2002, , placental abruption 2001, [facility] Hy[facility] 2017[facility] * Hospitalization/Major Diagno stic Procedure: D enies Past Hospitalization. * Family History: F ather: , diagnosed with Hypertension, Diabetes. M other: alive, diagnosed with Hypertension. 1 [...] Sexually active: yes. * Medications: D iscontinued Cephalexin 500 MG Capsule 1 capsule Orally Two times a day , Medication List reviewed and reconciled with the patient * Allergies: N .K.D.A. Objective: * Vitals: W t: 138.8, Temp: 98.3, BP: 114/70, HR: 66, Nurse: ALLAN, Ht: 62, BMI:25.38. * Examination: G eneral Examination: General Appearance: N AD. H EENT: u nremarkable.?Oral cavity: n o lesions, mucosa moist and WNL, no erythema. N luci: s upple, no lymphadenopathy. H eart: R SR. L ungs: c lear to auscultation. N eurologic Exam: Intact, gait normal. S kin: n ormal, no rash. P eripheral pulses: n ormal (2+) bilaterally. E xtremities: n o leg edema. Assessment: * Assessment: 1. W [facility] adult exam - Z00.00 (Primary) 2 . B WA 25.0-25.9,adult - Z68.25? Plan: * Treatment: Value Reference Range B UN 11 6-20 - mg/dL * C alcium 9.0 8.6-10.4 - mg/dL * C hloride 109 H 97-108 - mmol/L * C O2 23 20-32 - mmol/L * C reatinine 0.54 0.50-1.00 - mg/dL * G lucose 90 65-99 - mg/dL * P otassium 4.3 3.5-5.3 - mmol/L * S odium 140 135-145 - mmol/L * e GFR by Creatinine 116 >59 - mL/min/1.73m2 * Zulema Amin 02/18/2025 10:38: 33 AM EDT > LM for pt to return call Kacey Ojeda 02/18/2025 10:48:36 AM EDT > pt informed of results ?LAB: P-Lipid Panel (Collection Date & Time - 02/15/2025 10:01 AM)?Normal* Value Reference Range C holesterol / HDL Ratio 2.39 0.00-4.44 - Ratio * C holesterol 146 <200 - mg/dL * H DL Cholesterol 61 >39 - mg/dL * L DL Cholesterol (Calculation) 76 <130 - mg/d L * L DL/HDL Ratio 1.2 <3.3 - Ratio * N on-HDL Cholesterol 85 <130 - mg/dL * T riglycerides 44 <150 - mg/dL * Zulema Amin 02/18/2025 10:38: 33 AM EDT > LM for pt to return call Kacey Ojeda 02/18/2025 10:48:36 AM EDT > pt informed of results * Procedure Codes: 3 6415 VENIPUNCT, ROUTINE*, 3074F SYST BP LT 130 MM HG, 3078F DIAST BP < 80 MM HG * Follow Up: p rn * Images: Billing Information: * Visit Code: 10615 Preventive Care Est Pt Age 40-64. * Procedure Codes: 35067 VENIPUNCT, ROUTINE*. 3074F SYST BP LT 130 MM HG. 3078F DIAST BP < 80 MM HG. * Electronic signature of Mercedes Jackson MD on 05/28/2025 at 08:28 AM EST Sign off status: Pending * Provider: Edy Jackson M.D. Date: 0 02/15/2025 Generated for Adalgisa hernández/Agnieszka/Rohanitting on: 1 07/28/2024 08:28 AM EST History and Physical Notes * HPI (History of Present Illness) Category Sub-Category Detail Notes Category Not es HPI Patient is here today for comple te physical. Pt states she is doing good and denies any new concerns. Pt is not fasting Examination Category Sub-Category Detail Notes Category Not es General Examination HEENT: unremarkable Heart: RSR Lungs: clear to auscultatio n Extremities: no leg edema General Appearance: NAD Skin: normal, no rash Neurologic Exam: Intact, gait normal Neck: supple, no lymphaden opathy Oral cavity: no lesions, mucosa m oist and WNL, no erythema Peripheral pulses: normal (2+) bilatera lly
--- OUTSIDE RECORDS SUMMARY | 2025-04-15 06:15 | XMS_ITS ---
Author Organization [facility] Address [address] [place] [id number] Care Team Providers Care Edge Molder Name Role Phone Peewee Reina Primary Care Provider Elaina Card Unavailable [phone] Allergies No Known Allergies Results Component Value Reference Range Notes CBC Venipuncture (in house) Reviewed date:04/15/2025 01:21:54 PM Interpretation: Performing Lab: Notes/Report: wbc 7.9 3.5 - 10 lymph 25.7% 15 - 50 mid 5.6% 2 - 15 gran 68.7% 35 - 80 rbc 4.02 3.5 - 5.5 hgb 13.5 11.5 - 16.5 hct 40.3 35 - 55 mcv 100.3 75 - 100 mch 33.5 25 - 35 mchc 33.4 31 - 38 platlet 302 100 - 400 P-Comprehensive Metabolic Pa kecia (CMP) Reviewed date:04/21/2025 07:39:36 PM Interpretation:Normal Performing Lab: Notes/Report: Test performed by [facility] , [address], [place] [address] El Oreilly MD, 3Rd Grade Reading Teacher CLIA: [id number] Sodium 140 135-145 mmol/L Potassium 4.2 3.5-5.3 mmol/L Chloride 106 97-108 mmol/L CO2 27 20-32 mmol/L Glucose 86 65-99 mg/dL BUN 10 6-20 mg/dL Creatinine 0.66 0.50-1.00 mg/dL Calcium 9.2 8.6-10.4 mg/dL eGFR by Creatinine 111 >59 mL/min/1.73m2 Protein 6.2 6.0-8.3 g/dL Albumin 4.2 3.5-5.3 g/dL Alkaline Phosphatase 56 35-121 IU/L ALT (SGPT) 8 <5-47 IU/L AST (SGOT) 13 <5-40 IU/L Bilirubin, Total 0.4 <0.2-1.2 mg/dL A/G Ratio 2.1 1.1-2.5 P-TSH Reviewed date:04/21/2025 07:38:48 PM Interpretation:1.6 Performing Lab: Notes/Report: Test performed by [employer] [address] [place] [address] , [address], [place] [address] El Oreilly MD, 3Rd Grade Reading Teacher CLIA: [id number] TSH 1.60 0.43-5.25 mU/L Reason For Referral Diagnosis 1 Abdominal pain (R10. 9) Referral Organization [facility] Referring Provider First Name Elaina Referring Provider Last Name Kyaw Referring Provider Speciality Family Pra ctice General Notes Has seen [facility] in t he past; has restarted diarrhea; weight loss as well; some blood in her stool, Rosemarie Matias 04/15/2025 12:59:20 PM > faxed to [facility] Referral Priority Routine REASON FOR VISIT diarrhea, headache, shaky Medications Medication SIG (Take, Route, Frequency, Duration) Notes Start Date End Date Status Famotidine 20 MG 1 tablet at bedtime Orally daily; Duration: 28 days 04/15/2025 Active Hyoscyamine Sulfate 0.125 MG 1 tablet as needed Orally 4 times a day 04/15/2025 Active Ondansetron 4 MG 1 tablet on the tongue and allow to dissolve Orally every 8 hours As needed 04/15/2025 Active 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 Tobacco Use: 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 Observation Description Date Details (start date - stop date) Heavy tobacco saray campo NA - NA CURRENT TOBACCO USE: Question Answer Notes Are you a: heavy tobacco smoker 1ppd Problems Problem Type SNOMED Code ICD Code Onset Dates Problem Status W/U Status Risk Notes Problem Gastroesophageal reflux disease (890057401) GERD (gastroeso phageal reflux disease) (K21.9) Active confirmed Vital Signs Blood pressure systolic 130 mm Hg 04/15/20 25 Blood pressure diastolic 78 mm Hg 025 Heart Rate 74 /min 04/15/2025 Height 62 in 04/15/2025 Weight 134.2 lbs 04/15/2025 BMI 24.54 kg/m2 04/15/2025 Encounters Encounter Location Date Provider Diagnosis [facility] [address] [facility] [address] [facility] [address] [place] [id number] 04/15/2025 Elaina Card Abdominal pain R10.9 ; Acute diarrhea R19.7 ; GERD (gastroesophageal reflux disease) K21.9 and Nausea R11.0 Assessments Encounter Date Diagnosis (ICD Code) Assessment Notes Treatment Notes Treatment Clinical Notes Section Notes 04/15/2025 Abdominal pain (ICD-10 - R10.9) 04/15/2025 Acute diarrhea (ICD-10 - R19.7) bland diet; no carbonation; good water intake; small amounts frequently 04/15/2025 GERD (gastroesophag eal reflux disease) (ICD-10 - K21.9) 04/15/2025 Nausea (ICD-10 - R11.0) Plan Of Treatment Medication Medication Name Sig Start Date Stop Date Notes Famotidine 20 MG 1 tablet at bedtime Orally daily; Duration: 28 days 04/15/2025 Hyoscyamine Sulfate 0.125 MG 1 tablet as needed Orally 4 times a day 04/15/2025 Ondansetron 4 MG 1 tablet on the tong ue and allow to dissolve Orally every 8 hours 04/15/2025 Treatment Notes Assessment Notes Acute diarrhea bland diet; no carbo nation; good water intake; small amounts frequently Pending Test Test Name Order Date Diarrhea Panel ([facility]) 04/15/2025 Referrals Referral Date Details 04/15/2025 04/15/2025 Next Appt Details Follow Up: 1 Week, Reason: Provider Name:Elaina serra, 07/22/2025 04:15:00 PM, [address] [facility], [address], [place], [phone], Progress Notes * DEBBY ROWAN: 1 (45 yo F)Acc No.[id number]:04/15/2025 Progress Notes Patient: RICHY WALKER Provider: CHYNA Lacy :1980 A ge:45 Y S ex:Female Date:04/15/2025 Address:[address] [id number] Pcp:Peewee Reina Subjective: * Chief Complaints: * 1 . Diarrhea, headache, shaky. * HPI: G astroenterology: saw GI about 1 year ago; was treated for E coli infection with resolution; did not followup because she felt better; was told she needed another colonoscopy; has had > 30# weight loss since aug 2024; does no drink ETOH; drinks caffeine in the form of mostly pop 4/day; smokes 1 PPD; works 70 hours weekly and does not have time to eat. 45 year old female presents with c/o Abdominal Pain l ower abdomen off and on for a couple months. c/o Nausea. c/o Diarrhea m ixed with blood. The pt states she ate Monday and the [employer] in [place] over the weekend. Pt states she ate a [place] burber and has been feeling sick to her stomach and diarrhea. Pt's mom states the pt has been having intermittent abdominal pain, diarrhea and weakness for a couple months. c/o Abdominal Distension. c/o Blood in Stool b right red in color. c/o loose stools. c/o hemorrhoid. c/o reflux. c/o weight loss. c/o Bloating. Denies : Vomiting. D enies : Fever. * ROS: C ARDIOLOGY: no C hest pain. n o S hortness of breath. ? D ERMATOLOGY: no R nancy. n o H zana. U ROLOGY: no D ifficulty urinating. n o B lood in urine. * Medical History: T ype 2A - blood clot disorder (Von Willebrand's). * Surgical History: c -section, placental abruption 2009, 2002, , placental abruption 2001, Partial Hysterectomy 2017, Colonoscopy, [facility] 12/2021. * Family History: F ather: , diagnosed [...] N .K.D.A. Objective: * Vitals: W t: 134.2, Temp: 98.0, BP: 130/78, HR: 74, Nurse: ALLAN, Ht: 62, BMI:24.54. * Examination: G eneral Examination: General Appearance: N AD, alert; appears not to feel well.?HEENT: s clera and conjunctiva clear, PERRLA, TM's normal, translucent. O ral cavity:?mucosa moist and WNL, normal, no erythema. N luci: s upple, no lymphadenopathy. H eart: R RR 70/min. L ungs: C TAB A&P. A bdomen: b owel sounds present, soft, no organomegaly or masses, no guarding or rigidity, nontender. N eurologic Exam: a lert and oriented. Assessment: * Assessment: 1. A bdominal pain - R10.9 (Primary) 2 . A cute diarrhea - R19.7 3 . G ERD (gastroesophageal reflux disease) - K21.9 4 . N ausea - R11.0 Plan: * Treatment: Value Reference Range A /G Ratio 2.1 1.1-2.5 - * A lbumin 4.2 3.5-5.3 - g/dL * A lkaline Phosphatase 56 35-121 - IU/L * A LT (SGPT) 8 <5-47 - IU/L * A ST (SGOT) 13 <5-40 - IU/L * B ilirubin, Total 0.4 <0.2-1.2 - mg/dL * B UN 10 6-20 - mg/dL * C alcium 9.2 8.6-10.4 - mg/dL * C hloride 106 97-108 - mmol/L * C O2 27 20-32 - mmol/L * C reatinine 0.66 0.50-1.00 - mg/dL * G lucose 86 65-99 - mg/dL * P otassium 4.2 3.5-5.3 - mmol/L * S odium 140 135-145 - mmol/L * P rotein 6.2 6.0-8.3 - g/dL * e GFR by Creatinine 111 >59 - mL/min/1.73m2 * Elaina Card 04:04:14 PM EDT > results reviewed with patient ?LAB: P-TSH (Collection Date & Time - 04/15/2025 11:37 AM)?1.6* Value Reference Range T SH 1.60 0.43-5.25 - mU/L * Elaina Card 07:38:01 PM EDT >reviewed with pt during OV ?LAB: CBC Venipuncture (in house) (Collection Date & Time - 04/15/2025)* Value Reference Range w bc 7.9 3.5 - 10 * l ymph 25.7% 15 - 50 * m id 5.6% 2 - 15 * g ran 68.7% 35 - 80 * r bc 4.02 3.5 - 5.5 * h gb 13.5 11.5 - 16.5 * h ct 40.3 35 - 55 * m cv 100.3 75 - 100 * m ch 33.5 25 - 35 * m chc 33.4 31 - 38 * p latlet 302 100 - 400 * Eryn Barba 04/15/2025 1 2:22:54 PM EDT > Provider reviewed results while patient in office.Elaina Card 04/15/2025 01:21:51 PM EDT > ? Referral To: ?Reason: 2.?Acute diarrhea? Start Hyoscyamine Sulfate Tablet, 0.125 MG, 1 tablet as needed, Orally, 4 times a day, 30, Refills 1.?? Notes: bland diet; no carbonation; good water intake; small amounts frequently?? 3.?GERD (gastroesophageal reflux disease)? Start Famotidine Tablet, 20 MG, 1 tablet at bedtime, Orally, daily, 28 days, 28 Tablet, Refills 1. ?4.?Nausea? Start Ondansetron Tablet Disintegrating, 4 MG, 1 tablet on the tongue and allow to dissolve, Orally, every 8 hours As needed, 20.?? * Procedure Codes: 8 5025 CBC WITH AUTO DIFF, 99177 VENIPUNCT, ROUTINE*, 3075F SYST BP GE 130 - 139MM HG, 3078F DIAST BP < 80 MM HG * Follow Up: 1 Week * Images: Billing Information: * Visit Code: 66016 Office Visit, Est Pt., Level 4. * Procedure Codes: 49458 CBC WITH AUTO DIFF. 65102 VENIPUNCT, ROUTINE*. 3075F SYST BP GE 130 - 139MM HG. 3078F DIAST BP < 80 MM HG. * Electronic signature of Amalia Card APRN on 05/28/2025 at 08:29 AM EST Sign off status: Pending * Provider: CHYNA Lacy Date: Generated for Adalgisa hernández/Agnieszka/Rohanitting on: 07/28/2024 08:29 AM EST History and Physical Notes * HPI (History of Present Illness) Category Sub-Category Detail Notes Category Not es Gastroenterology Fever Vomiting Abdominal Pain lower abdomen off an d on for a couple months Diarrhea mixed with blood. Th e pt states she ate Monday and the [employer] in [place] over the weekend. Pt states she ate a [place] burber and has been feeling sick to her stomach and diarrhea. Pt's mom states the pt has been having intermittent abdominal pain, diarrhea and weakness for a couple months Blood in Stool bright red in color Nausea Abdominal Distension loose stools hemorrhoid reflux weight loss Bloating Examination Category Sub-Category Detail Notes Category Not es General Examination HEENT: sclera and c onjunctiva clear, PERRLA, TM's normal, translucent Heart: RRR 70/min Lungs: CTAB A&P Abdomen: bowel sounds present , soft, no organomegaly or masses, no guarding or rigidity, nontender General Appearance: NAD, alert; appears not to feel well Neurologic Exam: alert and oriented Neck: supple, no lymphaden opathy Oral cavity: mucosa moist and WNL , normal, no erythema Consultation Request Notes Referral Date Referring Provider Referred Provider Not es 04/15/2025 Elaina Card ,
--- OUTSIDE RECORDS SUMMARY | 2025-04-21 10:45 | XMS_ITS ---
[facility] Organization [facility] Address [address] [place] [id number] Care Team Providers Care Cook Frozen Dessert Name Role Phone Peewee Reina Primary Care Provider Elaina Card Unavailable [phone] Allergies No Known Allergies Reason For Referral Diagnosis 1 Abdominal pain (R10. 9) [facility] Referring Provider First Name Elaina Referring Provider Last Name Kyaw Referring Provider Speciality Family Pra ctice Referred Provider Gastroenterology, . Referred Provider Specialty Gastroentero logy General Notes with abnormal weight loss, Rosemarie Matias 04/22/2025 08:51:02 AM > referral was sent on 04/15/2025 Referral Priority Routine REASON FOR VISIT 1 week f/u Medications Medication SIG (Take, Route, Frequency, Duration) Notes Start Date End Date Status Ondansetron 4 MG 1 tablet on the tongue and allow to dissolve Orally every 8 hours As needed 04/15/2025 Active Famotidine 20 MG 1 tablet at bedtime Orally daily; Duration: 28 days Active Hyoscyamine Sulfate 0.125 MG 1 tablet as needed Orally 4 times a day 04/15/2025 Active 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 Tobacco Use: 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 Observation Description Date Details (start date - stop date) Heavy tobacco saray campo NA Kristin MICHAEL CURRENT TOBACCO USE: Question Answer Notes Are you a: heavy tobacco smoker 1ppd Vital Signs Blood pressure systolic 128 mm Hg 04/21/20 25 Blood pressure diastolic 70 mm Hg 025 Heart Rate 81 /min 04/21/2025 Height 62 in 04/21/2025 Weight 136 lbs 04/21/2025 BMI 24.87 kg/m2 04/21/2025 Encounters Encounter Location Date Provider Diagnosis [facility] [address] [facility] [address] [facility] [address] [place] [id number] 04/21/2025 Elaina Blakeond Abdominal pain R10.9 ; GERD (gastroesophageal reflux disease) K21.9 ; Abnormal weight loss R63.4 and Tobacco abuse disorder Z72.0 Assessments Encounter Date Diagnosis (ICD Code) Assessment Notes Treatment Notes Treatment Clinical Notes Section Notes 04/21/2025 Abdominal pain (ICD-10 - R10.9) improved with dietary changes 04/21/2025 GERD (gastroesophage al reflux disease) (ICD-10 - K21.9) 04/21/2025 Abnormal weight loss (ICD-10 - R63.4) 04/21/2025 Tobacco abuse disorder (ICD-10 - Z72.0) discussed cessation; has stopped before using the patches and may try these again 04/21/2025 Other discussed her work situation-work ing 7 days a week with > 10 hours daily Plan Of Treatment Medication Medication Name Sig Start Date Stop Date Notes Famotidine 20 MG 1 tablet at bedtime Orally daily; Duration: 28 days Treatment Notes Assessment Notes Tobacco abuse disorder discussed cessati on; has stopped before using the patches and may try these again Other discussed her work s ituation-working 7 days a week with > 10 hours daily Referrals Referral Date Details 04/21/2025 04/21/2025, . Gastro enterology Next Appt Details Follow Up: 3 Months, Reason: Provider Name:Elaina Lou serra, 07/22/2025 04:15:00 PM, [address] [facility] [address] [facility], [address], [place], [id number], Progress Notes * RICHY ROWANDOB: 1 (45 yo F)Acc No.[id number]:04/21/2025 Progress Notes Patient: RICHY WALKER Provider: CHYNA Lacy :1980 A ge:45 Y S ex:Female Date:04/21/2025 Address:[address] [place], [id number] Pcp:Peewee Reina Subjective: * Chief Complaints: * 1 . 1 week f/u. * HPI: G astroenterology: Pt here for f/u. Pt states she is better than she was last week. Pt states she is still having some stomach pain at times but not much. 45 year old female presents with c/o Abdominal Pain. c/o gas. Denies : Heartburn i mproved. D enies : Nausea. D enies : Vomiting. D enies : Diarrhea c eased with Levsin. D enies : Fever. D enies : Blood in Stool. D enies : loose stools. D enies : bowel problems. D enies : weight loss.? * ROS: D ERMATOLOGY: no R nancy. [...] placental abruption 2001, Partial Hysterectomy 2017, Colonoscopy, [facility] 12/2021. * Family History: F ather: , [...] Alcohol: No. Sexually active: yes. * Medications: T aking Hyoscyamine Sulfate 0.125 MG Tablet 1 tablet as needed Orally 4 times a day , Taking Ondansetron 4 MG Tablet Disintegrating 1 tablet on the tongue and allow to dissolve Orally every 8 hours As needed, Taking Famotidine 20 MG Tablet 1 tablet at bedtime Orally daily , Medication List reviewed and reconciled with the patient * Allergies: N .K.D.A. Objective: * Vitals: W t: 136, Temp: 98.5, BP: 128/70, HR: 81, Nurse: pe, Ht: 62, BMI:24.87. * P ast Orders: L ab:CBC Venipuncture (in house) (Order Date - 04/15/2025) (Collection Date & Time - 04/15/2025) Value Reference Range wbc 7.9 3.5 - 10 lymph 25.7% 15 - 50 mid 5.6% 2 - 15 gran 68.7% 35 - 80 rbc 4.02 3.5 - 5.5 hgb 13.5 11.5 - 16.5 hct 40.3 35 - 55 mcv 100.3 75 - 100 mch 33.5 25 - 35 mchc 33.4 31 - 38 platlet 302 100 - 400 L ab:P-Comprehensive Metabolic Panel (CMP) (Order Date - 04/15/2025) (Collection Date & Time - 04/15/2025 11:37 AM) Result: Normal Value Reference Range A/G Ratio 2.1 1.1-2.5 - Albumin 4.2 3.5-5.3 - g/dL Alkaline Phosphatase 56 35-121 - IU/L ALT (SGPT) 8 <5-47 - IU/L AST (SGOT) 13 <5-40 - IU/L Bilirubin, Total 0.4 <0.2-1.2 - mg/dL BUN 10 6-20 - mg/dL Calcium 9.2 8.6-10.4 - mg/dL Chloride 106 97-108 - mmol/L CO2 27 20-32 - mmol/L Creatinine 0.66 0.50-1.00 - mg/dL Glucose 86 65-99 - mg/dL Potassium 4.2 3.5-5.3 - mmol/L Sodium 140 135-145 - mmol/L Protein 6.2 6.0-8.3 - g/dL eGFR by Creatinine 111 >59 - mL/min/1.73m2 Clinical Info: Room A need [facility] for in house cbc L ab:P-TSH (Order Date - 04/15/2025) (Collection Date & Time - 04/15/2025 11:37 AM) Result: 1.6 Value Reference Range TSH 1.60 0.43-5.25 - mU/L Clinical Info: Room A need [facility] for in house cbc * Examination: G eneral Examination: General Appearance: N AD, alert, pleasant; appears like she feels better. H eart: R RR. L ungs: C TAB A&P. A bdomen: b owel sounds present, soft; mildly tender mid abdomen. N eurologic Exam: a lert and oriented. ? Assessment: * Assessment: 1. A bdominal pain - R10.9 (Primary) N otes :improved with dietary changes 2 . G ERD (gastroesophageal reflux disease) - K21.9 3 . A bnormal weight loss - R63.4 4 . T obacco abuse disorder - Z72.0 Plan: * Treatment: 2. G ERD (gastroesophageal reflux disease) Start Famotidine Tablet, 20 MG, 1 tablet at bedtime, Orally, daily, 28 days, 28 Tablet, Refills 1.? 3. T obacco abuse disorder Notes: discussed cessation; has stopped before using the patches and may try these again 4. O thers Notes: discussed her work situation-working 7 days a week with > 10 hours daily * Procedure Codes: 3 074F SYST BP LT 130 MM HG, 3078F DIAST BP < 80 MM HG * Follow Up: 3 Months * Images: Billing Information: * Visit Code: 07354 Office Visit, Est Pt., Level 3. * Procedure Codes: 3074F SYST BP LT 130 MM HG. 3078F DIAST BP < 80 MM HG. * Electronic signature of Amalia Card APRN on 05/28/2025 at 08:28 AM EST Sign off status: Pending * Provider: CHYNA Lacy Date: Generated for Adalgisa hernández/Agnieszka/Laura on: 07/28/2024 08:28 AM EST History and Physical Notes * HPI (History of Present Illness) Category Sub-Category Detail Notes Category Not es Gastroenterology Fever Vomiting Abdominal Pain Diarrhea ceased with Levsin Blood in Stool Nausea Heartburn improved loose stools gas bowel problems weight loss Examination Category Sub-Category Detail Notes Category Not es General Examination Heart: RRR Lungs: CTAB A&P Abdomen: bowel sounds present , soft; mildly tender mid abdomen General Appearance: NAD, alert, pleasant ; appears like she feels better Neurologic Exam: alert and oriented Consultation Request Notes Referral Date Referring Provider Referred Provider Not es 04/21/2025 Elaina Card Gastroenterology, .
[2025-05-28 08:24] VITALS: BP 133/72; PULSE 78; RESP 18; TEMP 36.6; O2SAT 98; BMI 23.8
--- OUTSIDE RECORDS SUMMARY | 2025-05-28 08:29 | XMS_ITS | Patient Health Record ---
Author Organization [facility] Address [address] [place] [id number] Care Team Providers Care Lab Scientist Name Role Phone Peewee Reina Primary Care Provider Clarke Jackson Unavailable [phone] Elaina Card Unavailable [phone] Allergies No Known Allergies Results Component Value Reference Range Notes P-Culture, Wound Aerobic w/G stoney Stain Reviewed date:09/27/2024 04:23:38 PM Interpretation:No growth Performing Lab: Notes/Report: Test performed by [facility] [address] [place], [place] [address] [place] , [address], [place] [id number] El Oreilly MD, Digital Content Specialist CLIA: [id number] Specimen Source Breast Gram Stain See Below Many Polymorphonuclear leukocytes Many Mixed Gram Positive Organisms Culture, Wound Aerobic w/Gram Stain See Below Preliminary Report : No growth, reincubate Final Report : No growth P-Basic Metabolic Panel (BMP ) Reviewed date:02/18/2025 10:48:46 AM Interpretation:Normal Performing Lab: Notes/Report: Test performed by [facility] [address] [place], [place] [address] Brandie Jay, [facility], [place] [address] El Oreilly MD, Digital Content Specialist CLIA: [id number] Sodium 140 135-145 mmol/L Potassium 4.3 3.5-5.3 mmol/L Chloride 109 97-108 mmol/L CO2 23 20-32 mmol/L Glucose 90 65-99 mg/dL BUN 11 6-20 mg/dL Creatinine 0.54 0.50-1.00 mg/dL Calcium 9.0 8.6-10.4 mg/dL eGFR by Creatinine 116 >59 mL/min/1.73m2 P-Lipid Panel Reviewed date:02/18/2025 10:48:46 AM Interpretation:Normal Performing Lab: Notes/Report: Test performed by [facility], [address] , [address], [place] [address] El Oreilly MD, Digital Content Specialist CLIA: [id number] Cholesterol 146 <200 mg/dL Triglycerides 44 <150 [...] Results: 76 Units: mg/dL % Change: - CBC Venipuncture (in house) Reviewed date:04/15/2025 01:21:54 [...] Interpretation:Normal Performing Lab: Notes/Report: Test performed by [facility] [address] [place] [address] , [address], [place] [address] El Oreilly MD, Digital Content Specialist CLIA: [id number] Sodium 140 135-145 mmol/L Potassium 4.2 3.5-5.3 [...] Interpretation:1.6 Performing Lab: Notes/Report: Test performed by [facility] [address] [place] [address] , [address], [place] [address] El Oreilly MD, Digital Content Specialist CLIA: [id number] TSH 1.60 0.43-5.25 mU/L Mammogram Reviewed date:04/25/2025 04:36:56 PM Interpretation:Negative Performing Lab: Notes/Report: Negative result Negative Reason For Referral Diagnosis 1 Abdominal pain (R10. 9) [facility] Referring Provider First Name Elaina Referring Provider Last Name Kyaw Referring Provider [facility] General Notes Has seen [facility] in t he past; has restarted diarrhea; weight loss as well; some blood in her stool, Polly Rosemarie 04/15/2025 12:59:20 PM > faxed to [facility] Referral Priority Routine Diagnosis 1 Abdominal pain (R10. 9) [facility] Referring Provider First Name Elaina Referring Provider Last Name Kyaw Referring Provider [facility] Referred Provider Gastroenterology, . Referred Provider Specialty Gastroentero logy General Notes with abnormal weight loss, Rosemarie Matias 04/22/2025 08:51:02 AM > referral was sent on 04/15/2025 Referral Priority Routine Medications Medication SIG (Take, [...] Status Risk Notes Problem Gastroesophageal reflux disease (259112309) GERD (gastroesophag eal reflux disease) (K21.9) Active confirmed Problem Abnormal mammogram (844731258) Abnormal mammogram (R92.8) Active confirmed Problem Obese class I (442156356586449) BMI 33.0-33.9,adul t (Z68.33) Active confirmed Problem Irritable bowel syndrome with diarrhea (895733422) Irritable bowel syndrome with diarrhea (K58.0) Active confirmed Problem Headache (48869218) Periodic headache syndrome, not intractable (G43.C0) Active confirmed Problem Migraine with aura (9414248) Migraine with aura and without status migrainosus, not intractable (G43.109) Active confirmed Problem Bipolar disorder (76034844) Bipolar disorder with depression (F31.9) Active confirmed Vital Signs Heart Rate 81 /min 04/21/2025 Blood pressure diastolic 70 mm Hg 04/21/2025 Height 62 in 04/21/2025 Blood pressure systolic 128 mm Hg 04/21/2025 Weight 136 lbs 04/21/2025 BMI 24.87 kg/m2 04/21/2025 Encounters Encounter Location Date Provider Diagnosis [facility] [address] [facility] [address] [place] [id number] 09/16/2024 Clarke Wendell Infection of breast, left N61.0 [facility] [address] [address] [place] [id number] 02/15/2025 Clarke Wendell Well adult exam Z00.00 and BMI 25.0-25.9,adult Z68.25 [facility] [address] [address] [place] [id number] 04/15/2025 Elaina Card Abdominal pain R10.9 ; Acute diarrhea R19.7 ; GERD (gastroesophageal reflux disease) K21.9 and Nausea R11.0 [facility] [address] [place] [id number] 04/21/2025 Elaina Card Abdominal pain R10.9 ; GERD (gastroesophageal reflux disease) K21.9 ; Abnormal weight loss R63.4 and Tobacco abuse disorder Z72.0 [facility] [facility] [address] [place] [id number] 02/24/2025 Peewee Reina Breast cancer screening Z12.31 [...] carbonation; good water intake; small amounts frequently 04/21/2025 Abdominal pain (ICD-10 - R10.9) improved with dietary changes 04/21/2025 GERD (gastroesophag eal reflux disease) (ICD-10 - K21.9) 04/21/2025 Abnormal weight loss (ICD-10 - R63.4) 04/15/2025 GERD (gastroesophag eal reflux disease) (ICD-10 - K21.9) 04/15/2025 Nausea (ICD-10 - R11.0) 04/21/2025 Tobacco abuse disorder (ICD-10 - Z72.0) discussed cessation; has stopped before using the patches and may try these again 04/21/2025 Other discussed her work situation-worki ng 7 days a week with > 10 hours daily Plan Of Treatment Pending Test Test Name Order Date Diarrhea Panel ([facility]) 04/15/2025 Next Appt Details Provider Name:Elaina Lou serra, 07/22/2025 04:15:00 PM, [address], [address], [place], [place], [id number], Insurance Providers Payer Name Payer Address Payer Phone Subscriber Number Group Number Insured Name Patient Relationship to Insured Coverage Start Date Coverage End Date [facility]ORAN GOODNE [facility] [address] [place] [address] [id number] RICHY ROWAN Self - patient is the insured Medical (General) History Medical History History ICD Code Type 2A - blood clot disorder ([employer]) Surgical History Surgery Date(Month/Year) , placental abruption 2009 2002 , placental abruption 2001 Partial Hysterectomy [address], [facility] 12/2021 Hospitalization History Reason Date(Month/Year)
--- NOTE | 2025-05-28 08:50 | XR_ITS ---
FINAL REPORT CLINICAL HISTORY: tenderness FINDINGS: PA and lateral views of the chest are obtained. There is no prior exam for comparison. The cardiac and mediastinal silhouettes are within normal limits. The lungs are clear. There is no pleural effusion, pneumothorax, or acute osseous abnormality. IMPRESSION: No radiographic evidence of acute cardiac or pulmonary disease. Reviewed, Interpreted and Dictated by Deepa Herrera MD Transcribed by Nadia Covington Authenticated and [facility]
--- NOTE | 2025-05-28 08:50 | XR_ITS ---
FINAL REPORT CLINICAL HISTORY: tenderness COMPARISON: None FINDINGS: 2 views of the right scapula were obtained. There is no fracture or dislocation. The joint space is preserved. Soft tissues are unremarkable. IMPRESSION: No acute osseous abnormality of the right scapula. Reviewed, Interpreted and Dictated by Deepa Herrera MD Transcribed by Nadia Covington Authenticated and [facility]
--- NOTE | 2025-05-28 08:50 | XR_ITS ---
FINAL REPORT CLINICAL HISTORY: tenderness COMPARISON: None FINDINGS: 3 views of the right shoulder were obtained. There is no fracture or dislocation. The joint space is preserved. Soft tissues are unremarkable. IMPRESSION: No acute osseous abnormality of the right shoulder. Reviewed, Interpreted and Dictated by Deepa Herrera MD Transcribed by Nadia Covington Authenticated and [facility]
--- NOTE | 2025-05-28 08:58 | HMH.EDGENADL ---
Discharge Plan Disposition Patient Disposition: Home, Self-Care Condition: Good Prescriptions Prescriptions: New methocarbamol 750 mg tablet 750 mg PO Q6H Qty: 120 0RF lidocaine 5 % adhesive patch,medicated 1 patch topical DAILY Qty: 15 0RF Rx Instructions: leave on most painful area for up to 12 hrs No Action Citrucel (sucrose) Powder 1 tbsp PO DAILY Rx Instructions: 1 Tablespoon mixed in water by mouth once a day sodium,potassium,mag sulfates [Suprep Bowel Prep Kit] 17.5-3.13-1.6 gram recon soln See Rx Instructions PO .COMPLEX Qty: 354 0RF Rx Instructions: DILUTE; drink full amount early evening before AND next morning at least 4-5 hr before procedure; follow w 960 mL water PO Align (B.infantis) 10.5 mg (10 million cell) tablet,chewable 10.5 mg PO BID Qty: 60 1RF Referrals Follow up/Referrals: Kai Reina MD [Primary Care Provider, Medical] - See instructions Ilia Casper DO [Staff Physician, Orthopedics] - See instructions Activity Restrictions/Add. Instructions Additional Instructions/Restrictions: I have sent you with a referral to Dr. Casper who is the orthopedic doctor if your symptoms do not improve you may need an MRI or further workup. I recommend that you take Tylenol and ibuprofen every 6 hours for the next couple days for your symptoms take this in addition to Robaxin. You can use the lidocaine patches as well. Return to the emergency department for any acute or worsening symptoms. Clinical Impressions Clinical Impression: Musculoskeletal back pain Stand Alone Forms Stand Alone Forms: Work/School Release Print Language Print Language: Sami Discharge ED Provider: Zully Lui Adult HPI General Chief complaint: Extremity Injury, Upper Stated complaint: right shoulder pain Time Seen by Provider: 05/28/25 08:43 Mode of Arrival: Ambulatory Source of Information: Patient Description of Symptoms (Recalled from ER Triage Doc. by RN): Reports that her right shoulder began hurting since yesterday morning. Reports taking Tylenol, ibuprofen, and using lidocaine patches with no relief. History of Present Illness HPI narrative: Patient is a 45-year-old female with no significant past medical history who presented to the emergency department with right shoulder pain. Patient states that she started having pain yesterday. Patient states that she has a [employer] physical job. Patient states that she has been taking Tylenol and ibuprofen and doing lidocaine patches at home. Patient states that she has pain with movement. Patient denies any numbness or weakness. Patient denies any new associated trauma. 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 Patient has not had any prior surgeries. Related Data Home Medications ?Medication ?Instructions ?Recorded ?Confirmed methylcellulose (with sugar) oral 1 tbsp PO DAILY 06/17/24 06/17/24 powder (Citrucel (sucrose) oral powder) Previous Rx's ?Medication ?Instructions ?Recorded Bifidobacterium infantis 10.5 mg 10.5 mg PO BID #60 tabs 05/15/24 (10 million cell) chewable tablet (Align (B.infantis)) sodium,potassium,mag sulfates 17.5 See Rx Instructions PO .COMPLEX 07/18/24 gram-3.13 gram-1.6 gram oral soln #354 mL (Suprep Bowel Prep Kit) lidocaine 5 % topical patch 1 patch topical DAILY #15 ea 05/28/25 methocarbamol 750 mg tablet 750 mg PO Q6H #120 tabs 05/28/25 Allergies Allergy/AdvReac Type Severity Reaction Status Date / Time No Known Allergies Allergy Verified 06/17/24 11:10 [facility] Disclaimer: The information contained in this section may have been updated after the patient was seen, as this information can be updated by other users. 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 Smoking Status: Current every day smoker tobacco type: cigarettes packs per day: 1 alcohol intake: never substance use type: denies use current occupational status: employed Travel in the last 8 weeks?: None household members: family housing: house current occupation: [employer] current occupational exposures/hazards: No caffeine: Yes Have you lived/traveled outside US in past 30 days?: No Contact w/someone who lives/traveled outside US past 30 days?: No Exposure to someone with infectious disease in past 14 days?: No Do you have a fever (greater than 100.4 F or 38 C)?: No Have you tested positive for COVID-19?: No Exposed to someone with COVID-19 in past 14 days?: No Do you have a sore throat?: No Do you have a cough?: No Do you have any weakness?: No Do you have any diarrhea?: No Are you experiencing any unusual bleeding?: No Do you have any muscle aches/pain?: No Do you have any abdominal pain?: No Are you experiencing loss of taste or smell?: No Other Medical History Have you received the Flu Vaccine for this season: No Have you received the Pneumonia Vaccine: No ROS Obtained: Yes All systems reviewed & no additional complaints except as documented and Yes Systems reviewed as appropriate & no additional complaints except as documented Physical Exam General General appearance: alert and in no apparent distress Head Head exam: atraumatic, normocephalic and normal inspection Eye Eye exam: Present normal appearance, PERRL and EOMI; Absent scleral icterus ENT ENT exam: Present normal exam and normal external ear exam Neck Neck exam: Present normal inspection and full ROM Chest Chest inspection: Present normal inspection and symmetric chest wall rise Respiratory Respiratory exam: Present normal lung sounds bilaterally; Absent respiratory distress or wheezes Cardiovascular Cardiovascular exam: Present regular rate, normal rhythm and normal heart sounds Abdominal Exam Abdominal exam: Present soft and distention; Absent tenderness, guarding or rebound Extremities Exam Extremities exam: Present normal inspection, full ROM and other (RUE with tenderness along the shoulder, trapezius and along the outer scapula, no decreased ROM) Back Exam Back exam: Present normal inspection and full ROM Neurological Exam Neurological exam: Present alert and oriented X3 Psychiatric Psychiatric exam: Present normal affect and normal mood Skin Skin exam: Present warm and dry Medical Decision Making Medical Records Medical records reviewed: Yes I reviewed the patient's medical records. Screening: Per USPSTF and CDC recommendations, given the prevalence of disease in our region, it is our hospital?s policy to screen for HIV and viral Hepatitis for all patients aged 18 and over and those with ongoing risk factors. Greg Inquiry Pt receiving controlled substance: No Vital Signs: 05/28/25 08:24 05/28/25 11:05 Temperature 97.8 F 97.8 F Temperature Source Oral Oral Pulse Rate 68 Pulse Rate [Radial] 78 Respiratory Rate 18 18 Blood Pressure 145/70 H Blood Pressure [Right Arm] 133/72 Blood Pressure Mean [Right Arm] 92 Blood Pressure Source Automatic Cuff Blood Pressure Source [Right Arm] Automatic Cuff Blood Pressure Position Sitting Blood Pressure Position [Right Arm] Sitting 02 Sat by Pulse Oximetry 98 Oxygen Delivery Method Room Air Room Air Lab Data Lab results reviewed: Yes I reviewed the patient's lab results. Orders (Tests/Meds): ED MEDICATIONS Discontinued Medications Generic Name Dose Route Start Last Admin Trade Name Vielka PRN Reason Stop Dose Admin Acetaminophen 1,000 mg 05/28/25 08:50 05/28/25 09:03 Acetaminophen 500mg Tab PO 05/28/25 08:51 1,000 mg ONCE ONE Administration Ibuprofen 800 mg 05/28/25 08:50 05/28/25 09:03 Ibuprofen 400 Mg Tablet PO 05/28/25 08:51 800 mg ONCE ONE Administration Lidocaine 1 each 05/28/25 08:50 05/28/25 09:04 Lidocaine 5% Transdermal Patch TD 05/28/25 08:51 1 each ONCE ONE Administration Lidocaine HCl 20 ml 05/28/25 08:50 05/28/25 10:59 Lidocaine 1% 20ml Mdv SUBCUT 05/28/25 08:51 20 ml ONCE ONE Administration Methocarbamol 500 mg 05/28/25 08:51 05/28/25 09:03 Methocarbamol 500mg Tablet PO 05/28/25 08:52 500 mg ONCE ONE Administration ORDERS Category Date Time Status CXR 2 view (NOT portable) [XR chest 2V] Stat Exams 05/28/25 08:50 Completed Shoulder XR right miminum 2 views [XR shoulder RT min Exams 05/28/25 08:50 Completed 2V] Stat XR scapula RT Stat Exams 05/28/25 08:50 Completed Medical Decision Narrative: Patient is a 45-year-old female with no significant past medical history who presented to the emergency department with right upper extremity pain. On arrival, patient was hemodynamically stable with unremarkable vital signs. Differential includes but not limited to: Fracture, dislocation, sprain, strain, musculoskeletal spasm, amongst others. On exam, patient had full range of motion of the right upper extremity. Patient was neurovascular intact with appropriate 2+ radial pulse. Patient had tenderness along the trapezius with increased pain with movement of her head to the left. Patient also had pain along the outer scapula. X-rays were obtained which were reviewed and interpreted by myself and showed no acute bony pathology. Given patient's musculoskeletal tenderness on exam I feel that patient symptoms are likely related to this. Patient was given Tylenol Motrin Robaxin and a lidocaine patch here in the emergency department. Patient was also given a trigger point injection and patient reported significant improvement in her symptoms. At this time I felt the patient was stable and appropriate for discharge home. Patient was given muscle relaxer to take in addition to Tylenol and ibuprofen at home patient was sent with outpatient orthopedic follow-up. Patient was otherwise discharged home in stable condition peer Procedures Miscellaneous Procedure Procedure Performed: Trigger point injection perfromed into R trapezius, US guided with improvement of symptoms. 1% lidocaine used 10cc. Critical Care Critical Care Time Critical Care Time: No
[2025-05-28] MEDS: METHOCARBAMOL 500MG TABLET 500 MG PO (09:03)
[2025-05-28] MEDS: IBUPROFEN 400 MG TABLET 800 MG PO (09:03)
[2025-05-28] MEDS: ACETAMINOPHEN 500MG TAB 1000 MG PO (09:03)
[2025-05-28] MEDS: LIDOCAINE 5% TRANSDERMAL PATCH 1 EACH TD (09:04)
--- NOTE | 2025-05-28 09:06 | PC.NURSE ---
notified patient provider was in emergency might be a little wait. patient had no complaints at this time
--- NOTE | 2025-05-28 09:45 | PC.NURSE ---
checked on patient again, she reports no need at this time. still waiting on provider to get out of emergency
[2025-05-28] MEDS: LIDOCAINE 1% 20ML MDV 20 ML SUBCUT (10:59)
[2025-05-28 11:05] VITALS: BP 145/70; PULSE 68; RESP 18; TEMP 36.6; O2SAT 98
== END 2025-05-28 11:06 | disposition home or self-care (01) ==
PROVIDERS: Emergency Provider Student in an Organized Health Care Education/Training Program; PCP Family Medicine
DX: M54.6 Pain in thoracic spine (principal); M25.511 Pain in right shoulder; F17.210 Nicotine dependence, cigarettes, uncomplicated
CPT/HCPCS: 20552; 71046; 73010; 73030; 99284; J2003